=== PATIENT | female | born 1965 | race Caucasian/White ===

== ENCOUNTER 2017-03-25 11:19 | Day surgery (SDC) | payer OTHER ==
[2017-03-24 11:33] VITALS: BMI 21.8
[2017-03-25 12:08] LABS: BASOPHIL 1.5 % (0-2.0); EOSINOPHIL 0.6 % (0-4.5); MCH 33.2 pg (25.7-33.7); MCHC 33.5 g/dl (32.0-36.0); NEUTROPHILS 64.3 % (42.8-82.8); PLATELET COUNT 304 K/MM3 (134-434); RDW 13.6 % (11.6-15.6); WHITE BLOOD COUNT 6.2 K/mm3 (4.0-10.0)
[2017-03-25 12:24] LABS: INR 1.04 (0.82-1.09); PROTHROMBIN TIME (PATIENT) 11.4 SEC (9.98-11.88)
[2017-03-25 12:29] VITALS: TEMP 98.7
[2017-03-25 20:00] VITALS: BP 105/66; PULSE 60
--- NOTE | 2017-03-26 15:23 | PATH ---
Surgical Pathology Report Patient Name: VANDANA WISE [facility]. Rec. #: [id number] /Age/Gender: 1965 (Age: 51) / F Account: [id number] Location: Taken: 03/25/2017 Received: 03/25/2017 Reported: 03/26/2017 Physicians: Robb Chakraborty M.D. Ammir Rabadi, M.D. Specimen(s) Received RIGHT LUNG BIOPSY Clinical History 51-year-old female with right lung mass Final Diagnosis LUNG, RIGHT, NEEDLE CORE BIOPSY: MODERATELY DIFFERENTIATED PULMONARY ADENOCARCINOMA. Comment: Sections reveal one tissue with neoplastic cells growing in a lepidic pattern and infiltrating the stroma. Immunohistochemical stains performed and interpreted at [facility] show the following results: The neoplastic cells stain with CK7 and TTF-1, and do not stain with CK20. The histologic and immunophenotypic findings are consistent with pulmonary adenocarcinoma. This case was discussed with Dr. Willson on March 26, 2017. Electronically Signed Temo Amaya M.D. Gross Description Received in formalin labeled "right lung biopsy," are 3 rivas, cylindrical portions of soft tissue averaging 1.0 cm in length and 0.1 cm in diameter. The specimens are submitted in toto in one cassette. 03/25/201703/25/2017
== END 2017-03-25 19:00 | disposition home or self-care (01) ==
LOC: JRADIR 11:19
PROVIDERS: ATTEND Internal Medicine Pulmonary Disease
PROC: BB24ZZZ Computerized Tomography (CT Scan) of Bilateral Lungs (ICD-10-PCS; principal; 2017-03-25)
PROC: 0BBK3ZX Excision of Right Lung, Percutaneous Approach, Diagnostic (ICD-10-PCS; 2017-03-25)
DX: C34.91 Malignant neoplasm of unspecified part of right bronchus or lung (principal)
CPT/HCPCS: 36415; 71010-TC; 76098-TC; 77012-TC; 85025; 85610; 87899; 88305-TC; 88341-TC; 88342-TC

== ENCOUNTER 2017-04-28 08:31 | Inpatient (IN) | payer OTHER ==
[2017-04-25 13:51] VITALS: BMI 21.6
[2017-04-28] MEDS ORDERED: MIDAZOLAM HCL 2 MG/2 ML SINGLE DOSE VIAL ONE (11:02)
[2017-04-28] MEDS ORDERED: PHENYLEPHRINE HCL 10 MG/1 ML SINGLE DOSE VIAL ONE ×2 (11:11→14:53)
[2017-04-28] MEDS ORDERED: PROPOFOL 20 ML ONE ×2 (11:19→14:02)
[2017-04-28] MEDS ORDERED: NEOSTIGMINE METHYLSULFATE 0.5 MG/ML - 10 ML MDV ONE (11:44)
[2017-04-28] MEDS ORDERED: NALOXONE HCL 0.4 MG/ML VIAL ONE (11:50)
[2017-04-28] MEDS ORDERED: BUPIVACAINE HCL/PF 0.5% (5MG/ML) 10 ML VIAL ONE ×2 (13:35→13:36)
[2017-04-28] MEDS ORDERED: DEXAMETHASONE SOD PHOSPHATE/PF 10 MG/ML SDV ONE (13:35)
[2017-04-28] MEDS ORDERED: ceFAZolin SODIUM 1 GM VIAL IVPB ONE (14:05)
[2017-04-28] MEDS ORDERED: HEPARIN NA (PORCINE) 5,000 UNITS/ML 1ML VIAL SQ ONE (14:10)
[2017-04-28] MEDS ORDERED: ROCURONIUM BROMIDE 50 MG/5 ML VIAL ONE ×2 (14:45→16:47)
[2017-04-28] MEDS ORDERED: ceFAZolin SODIUM 1 GM VIAL ONE (14:46)
[2017-04-28] MEDS ORDERED: LIDOCAINE HCL 1%, 10 MG/ML (20ML VIAL) ONE (14:46)
[2017-04-28] MEDS ORDERED: HYDROmorphone HCL/PF 1 MG/ML VIAL (FOR PYXIS CHARGING ONLY) ONE ×5 (14:48→19:35)
[2017-04-28] MEDS ORDERED: DEXAMETHASONE SOD PHOSPHATE 4 MG/1 ML VIAL ONE (16:38)
[2017-04-28] MEDS ORDERED: ePHEDrine SULFATE 50 MG/1 ML AMPULE ONE (16:49)
--- NOTE | 2017-04-28 18:37 | OP ---
Operative Note - Note: Operative Date: 04/28/17 Pre-Operative Diagnosis: Lung cancer Operation: Bronchoscopy, Right lower lobectomy, mediastinal lymph node dissection Findings: Superior segment malignant tumor. Margin negative. Implants: none Post-Operative Diagnosis: Same as Pre-op Surgeon: Price Mercado Tobacco Primer Machine Operator: Juan Zaidi (cosurgeon) Anesthesiologist/METER TECHNICIAN: Jerald Rodriguez Anesthesia: General Estimated Blood Loss (mls): 250 Operative Report Dictated: Yes
[2017-04-28] MEDS ORDERED: LIDOCAINE HCL 1%, 10 MG/ML (50 mL VIAL) IJ ONE (18:40)
[2017-04-28] MEDS ORDERED: ALPRAZolam 0.25 MG TABLET PO PRN (18:45)
[2017-04-28] MEDS ORDERED: SODIUM CHLORIDE 1,000 ML IV SCH (19:00)
[2017-04-28] MEDS: HYDROmorphone HCL CARPU-JECT 2 MG/1 ML DISP.SYRIN IVPUSH PRN ×3 (19:10→20:15)
[2017-04-28] MEDS ORDERED: oxyCODONE HCL 5 MG TABLET PO PRN (19:11)
[2017-04-28] MEDS ORDERED: ACETAMINOPHEN 1000 MG/100 ML VIAL (NON FORMULARY) IVPB ONE (19:11)
[2017-04-28] MEDS ORDERED: ONDANSETRON 4 MG/2 ML VIAL IVPUSH PRN (19:11)
[2017-04-28] MEDS ORDERED: PROMETHAZINE HCL 25 MG/1 ML VIAL IVPUSH PRN (19:11)
[2017-04-28] MEDS: IPRATROPIUM BR 0.02% 0.5 MG/2.5 ML VIAL.NEB. NEB SCH ×2 (20:00→23:03)
[2017-04-28] MEDS ORDERED: HYDROmorphone HCL CARPU-JECT 2 MG/1 ML DISP.SYRIN ONE (20:14)
[2017-04-28] MEDS ORDERED: ACETAMINOPHEN INJECTION 100 ML IVPB ONE (20:25)
[2017-04-28] MEDS: GABAPENTIN 300 MG CAPSULE (FP) PO SCH (21:38)
[2017-04-28] MEDS: ACETAMINOPHEN 325 MG TABLET (FP) PO SCH (21:39)
[2017-04-28] MEDS: DOCUSATE SODIUM 100 MG CAPSULE (FP) PO SCH (21:39)
[2017-04-28] MEDS: MUPIROCIN 2% TOPICAL OINTMENT FOR DECOLONIZATION NS SCH (21:40)
--- NOTE | 2017-04-28 21:43 | CONSULT ---
Consult Consult Specialty:: Pulm/CCM Reason for Consultation:: s/p Rt lobectomy - History of Present Illness Chief Complaint: Rt chest tube site pain History of Present Illness: 51 marcia active smoker with PMHx degenerative bone disease, anxiety and panic attacks recently discovered rt lung mass now s/p right lower lobe lobectomy and mediastinal lymph node dissection admitted to ICU for post-op care. Briefly Ms Francis states that she is an active smoker and is chronically SOB. Rt lung mass was discovered in August 2016 during imaging of degenerative spine disease. She denied cough, hemoptysis or worsening SOB. Admitted today for elective tumor resection. Admitted to ICU s/p RLL lobectomy and mediastinal lymph node dissection. Rec'd A +O x3 HR 73, BP 97/61 O2 sat 100% on NC O2 2L. CT x1 to LWS with sero sang drainage and occasional air leak. - History Source History Provided By: Patient, Medical Record Limitations to Obtaining History: No Limitations - Past Medical History Psych: Yes: Anxiety, Panic Musculoskeletal: Yes: Osteoarthritis - Alcohol/Substance Use Hx Alcohol Use: Yes (rarely) - Smoking History Smoking history: Current every day smoker Have you smoked in the past 12 months: Yes Aproximately how many cigarettes per day: 1 - Social History Usual Living Arrangement: With Spouse Home Medications - Allergies Allergies/Adverse Reactions: Allergies Allergy/AdvReac Type Severity Reaction Status Date / Time shrimp Allergy Unknown Verified 03/24/17 11:33 No Known Drug Allergies Allergy Verified 03/24/17 11:33 - Home Medications Home Medications: Ambulatory Orders Alprazolam [Xanax] 4 mg PO HS 03/24/17 Aspirin [ASA -] 162 mg PO DAILY 03/24/17 Oxycodone HCl/Acetaminophen [Percocet 10-325 mg Tablet] 1 each PO Q4HWA Alprazolam [Xanax] 2 mg PO TID PRN 04/08/17 Family Disease History - Family Disease History Family Disease History: CA: Mother (Lung) Review of Systems - Review of Systems Constitutional: reports: No Symptoms Eyes: reports: No Symptoms HENT: reports: No Symptoms Neck: reports: No Symptoms Cardiovascular: reports: No Symptoms Respiratory: reports: Cough Gastrointestinal: reports: No Symptoms Genitourinary: reports: No Symptoms Musculoskeletal: reports: No Symptoms Integumentary: reports: No Symptoms Neurological: reports: No Symptoms Endocrine: reports: No Symptoms Physical Exam Vital Signs: Vital Signs Temperature 97.8 F 04/28/17 19:02 Pulse Rate 88 04/28/17 20:15 Respiratory Rate 16 04/28/17 20:15 Blood Pressure 91/46 04/28/17 20:15 O2 Sat by Pulse Oximetry (%) 100 04/28/17 20:15 Constitutional: Yes: No Distress, Calm, Thin Eyes: Yes: WNL HENT: Yes: Atraumatic, Normocephalic Neck: Yes: Trachea Midline Cardiovascular: Yes: Regular Rate and Rhythm Respiratory: Yes: Regular, On Nasal O2, Other (Crackles RLL; Rt CT to LWS with occasional air leak) Gastrointestinal: Yes: Soft, Hypoactive Bowel Sounds Renal/: Yes: Yee Present Musculoskeletal: Yes: WNL Extremities: Yes: WNL Edema: No Peripheral Pulses WNL: Yes Wound/Incision: Yes: Other (Dressing intact with serosang drainage) Neurological: Yes: Alert, Oriented ...Motor Strength: WNL Psychiatric: Yes: Alert, Oriented Labs: CBC,CMP Serum , Qual Negative 04/28/17 08:41 Current Medications Generic Name Dose Route Start Last Admin Trade Name Freq PRN Reason Stop Dose Admin Acetaminophen 650 mg 04/28/17 19:15 04/28/17 21:39 Tylenol - PO 05/01/17 19:14 Not Given Q6H ALTAGRACIA Alprazolam 0.5 mg 04/28/17 18:45 Xanax - PO TID PRN ANXIETY Chlorhexidine Gluconate 1 applic 04/28/17 22:00 04/28/17 21:39 Hibiclens For Decolonization - TP 1 applic HS ALTAGRACIA Administration Docusate Sodium 100 mg 04/28/17 22:00 04/28/17 21:39 Colace - PO 100 mg BID ALTAGRACIA Administration Gabapentin 300 mg 04/28/17 22:00 04/28/17 21:38 Neurontin - PO 300 mg BID ALTAGRACIA Administration Heparin Sodium (Porcine) 5,000 unit 04/29/17 10:00 Heparin - SQ BID ALTAGRACIA Hydromorphone HCl 2 mg 04/28/17 19:11 04/28/17 20:15 Dilaudid Injection - IVPUSH 05/01/17 19:12 2 mg [id number] PRN Administration PAIN Cefazolin Sodium 1 gm/ 50 mls @ 100 mls/hr 04/29/17 22:00 Dextrose IVPB 04/30/17 14:29 Q8H ALTAGRACIA Sodium Chloride 1,000 mls @ 75 mls/hr 04/28/17 19:00 04/28/17 20:10 Normal Saline - IV 300 mls ASDIR ALTAGRACIA Administration Ipratropium [place] 1 amp 04/28/17 19:00 04/28/17 20:00 Atrovent 0.02% Nebulizer - NEB Not Given QIDR ALTAGRACIA Mupirocin 1 applic 04/28/17 22:00 04/28/17 21:40 Bactroban Ointment (For Decolonization) - NS 05/03/17 21:59 1 applic BID ALTAGRACIA Administration Ondansetron HCl 4 mg 04/28/17 19:11 Zofran Injection IVPUSH 04/29/17 01:12 Q6H PRN NAUSEA AND/OR VOMITING Oxycodone HCl 10 mg 04/28/17 22:00 04/28/17 21:38 Oxycontin - PO 05/01/17 19:14 10 mg BID ALTAGRACIA Administration Oxycodone HCl 5 mg 04/28/17 19:11 Roxicodone - PO Q3H PRN PAIN LEVEL 1-5 Oxycodone HCl 10 mg 04/28/17 19:11 Roxicodone - PO Q3H PRN PAIN LEVEL 6-10 Promethazine HCl 12.5 mg 04/28/17 19:11 Phenergan Injection - IVPUSH 04/29/17 01:12 Q6H PRN NAUSEA-FOR RESCUE AFTER 15 MIN Imaging - Results Chest X-ray: Report Reviewed Problem List - Problems (1) Lung cancer Code(s): C34.90 - MALIGNANT NEOPLASM OF UNSP PART OF UNSP BRONCHUS OR LUNG (2) S/P lobectomy of lung Code(s): Z90.2 - ACQUIRED ABSENCE OF LUNG [PART OF] Assessment/Plan 51 marcia active smoker with PMHx degenerative bone disease, anxiety and panic attacks recently discovered rt lung mass now s/p right lower lobe lobectomy and mediastinal lymph node dissection admitted to ICU for post-op care. Plan: -NC O2 support for O2 sat>95% -CT to LWS monitor for air leak and drainage -Cont nebs -IS and pulmonary toilet -Pain management -Clears liquids as tenisha -Cont home psyche meds - SCDs Karin Chaudhari, ACNP
[2017-04-28] MEDS ORDERED: oxyCODONE HCL 10 MG SUSTAINED ACTING TABLET PO SCH (22:00)
[2017-04-28] MEDS ORDERED: CHLORHEXIDINE GLUCONATE 4% CLEANSER FOR DECOLONIZATION TP SCH (22:00)
[2017-04-28] MEDS: oxyCODONE HCL 5 MG TABLET PO PRN (23:30)
[2017-04-29 00:12] LABS: MCH 32.5 pg (25.7-33.7); MCHC 33.8 g/dl (32.0-36.0); MEAN CELL VOLUME 96.2 fl (80-96); MEAN PLT VOLUME 9.2 fl (7.5-11.1); PLATELET COUNT 258 K/MM3 (134-434); RDW 13.8 % (11.6-15.6); WHITE BLOOD COUNT 16.9 K/mm3 (4.0-10.0)
[2017-04-29 00:17] LABS: ARTERIAL BLD GAS O2 SATURATION 99.2 % (90-98.9); ARTERIAL BLOOD GAS BASE EXCESS -0.3 meq/l (-2-2); ARTERIAL BLOOD GAS HCO3 22.7 meq/L (22-26); ARTERIAL BLOOD GAS pH 7.45 (7.35-7.45)
[2017-04-29 00:18] LABS: ART PUNCT SITE ARTERIAL LINE; LPM/O2% 2LPM; PT. ON O2? YES; TYPE OF O2 NASAL O2
[2017-04-29 00:25] LABS: ALBUMIN 3.5 g/dl (3.4-5.0); ALK PHOS 66 U/L (45-117); ANION GAP 12 (8-16); BILIRUBIN,TOTAL 0.7 mg/dL (0.2-1.0); CALCIUM 8.7 mg/dL (8.5-10.1); CO2 22 mmol/L (21-32); CREATININE 0.7 mg/dL (0.55-1.02); GLUCOSE,RANDOM 178 mg/dL (74-106); SGOT/AST 21 U/L (15-37); SGPT/ALT 25 U/L (12-78); TOT PROT 6.2 g/dl (6.4-8.2)
[2017-04-29] MEDS ORDERED: ALPRAZolam 2 MG TABLET PO ONE (01:44)
[2017-04-29] MEDS: ACETAMINOPHEN 325 MG TABLET (FP) PO SCH ×2 (02:02→07:48)
[2017-04-29] MEDS: oxyCODONE HCL 5 MG TABLET PO PRN ×2 (04:19→07:27)
[2017-04-29] MEDS: CEFAZOLIN (PRE-DOCKED) 50 ML IVPB SCH ×2 (04:19→10:59)
[2017-04-29 06:18] LABS: BASOPHIL 0.1 % (0-2.0); MCH 33.3 pg (25.7-33.7); MCHC 34.5 g/dl (32.0-36.0); MEAN CELL VOLUME 96.5 fl (80-96); MEAN PLT VOLUME 9.1 fl (7.5-11.1); NEUTROPHILS 86.2 % (42.8-82.8); PLATELET COUNT 243 K/MM3 (134-434); RDW 13.7 % (11.6-15.6); WHITE BLOOD COUNT 13.8 K/mm3 (4.0-10.0)
[2017-04-29] MEDS: IPRATROPIUM BR 0.02% 0.5 MG/2.5 ML VIAL.NEB. NEB SCH ×3 (06:30→18:00)
[2017-04-29 06:39] LABS: ANION GAP 6 (8-16); CALCIUM 9.1 mg/dL (8.5-10.1); CO2 30 mmol/L (21-32); GLUCOSE,RANDOM 117 mg/dL (74-106)
[2017-04-29 06:40] LABS: CREATININE 0.6 mg/dL (0.55-1.02)
--- NOTE | 2017-04-29 08:13 | PN ---
Physical Exam: SUBJECTIVE: Patient seen and examined. Patient anxious and emotional. OBJECTIVE: Vital Signs Period Temp Pulse Resp BP Sys/Casanova Pulse Ox Last 24 Hr 97.8 F-98.7 F 53-100 14-22 82-124/46-87 96-100 Gen: emotional, irritable and tearful Heart: RRR, S1 S2 audible Lung: decreased breath sounds at the bases Abd: soft, nontender Ext: no edema Chest tube: 300mL serosanguinous drainage, + air leak Intake & Output 04/26/17 04/27/17 04/28/17 04/29/17 23:59 23:59 23:59 23:59 Intake Total 2500 200 Output Total 910 1350 Balance 1590 -1150 Weight 56.4 kg Laboratory Results - last 24 hr 04/28/17 04/28/17 04/28/17 08:41 08:41 23:13 WBC 16.9 H D RBC 3.80 Hgb 12.4 Hct 36.5 MCV 96.2 H MCH 32.5 MCHC 33.8 RDW 13.8 Plt Count 258 MPV 9.2 Neutrophils % Lymphocytes % Monocytes % Eosinophils % Basophils % Puncture Site ABG pH ABG pCO2 at Pt Temp ABG pO2 at Pt Temp ABG HCO3 ABG O2 Sat (Measured) ABG O2 Content ABG Base Excess Gurmeet Test O2 Delivery Device Oxygen Flow Rate PEEP Sodium Potassium Chloride Carbon Dioxide Anion Gap BUN Creatinine Creat Clearance w eGFR Random Glucose Calcium Total Bilirubin AST ALT Alkaline Phosphatase Total Protein Albumin Serum , Qual Negative Blood Type O POSITIVE Antibody Screen Negative Crossmatch IS Only See Detail 04/28/17 04/29/17 04/29/17 23:52 00:00 05:00 WBC 13.8 H RBC 3.54 L Hgb 11.8 Hct 34.2 MCV 96.5 H MCH 33.3 MCHC 34.5 RDW 13.7 Plt Count 243 MPV 9.1 Neutrophils % 86.2 H D Lymphocytes % 7.0 L D Monocytes % 6.7 Eosinophils % 0.0 D Basophils % 0.1 Puncture Site Arterial line ABG pH 7.45 ABG pCO2 at Pt Temp 33.6 L ABG pO2 at Pt Temp 119.0 H ABG HCO3 22.7 ABG O2 Sat (Measured) 99.2 H ABG O2 Content 17.0 ABG Base Excess -0.3 Gurmeet Test Not applicable O2 Delivery Device Nasal o2 Oxygen Flow Rate 2lpm PEEP 0.0 Sodium 137 Potassium 4.0 Chloride 103 Carbon Dioxide 22 D Anion Gap 12 BUN 12 Creatinine 0.7 Creat Clearance w eGFR > 60 Random Glucose 178 H D Calcium 8.7 Total Bilirubin 0.7 D AST 21 D ALT 25 D Alkaline Phosphatase 66 D Total Protein 6.2 L Albumin 3.5 Serum , Qual Blood Type Antibody Screen Crossmatch IS Only 04/29/17 05:00 WBC RBC Hgb Hct MCV MCH MCHC RDW Plt Count MPV Neutrophils % Lymphocytes % Monocytes % Eosinophils % Basophils % Puncture Site ABG pH ABG pCO2 at Pt Temp ABG pO2 at Pt Temp ABG HCO3 ABG O2 Sat (Measured) ABG O2 Content ABG Base Excess Gurmeet Test O2 Delivery Device Oxygen Flow Rate PEEP Sodium 139 Potassium 4.8 Chloride 103 Carbon Dioxide 30 D Anion Gap 6 L BUN 9 D Creatinine 0.6 Creat Clearance w eGFR Random Glucose 117 H D Calcium 9.1 Total Bilirubin AST ALT Alkaline Phosphatase Total Protein Albumin Serum , Qual Blood Type Antibody Screen Crossmatch IS Only Active Medications Generic Name Dose Route Start Last Admin Trade Name Freq PRN Reason Stop Dose Admin Acetaminophen 650 mg 04/28/17 19:15 04/29/17 07:48 Tylenol - PO 05/01/17 19:14 Not Given Q6H ALTAGRACIA Chlorhexidine Gluconate 1 applic 04/28/17 22:00 04/28/17 21:39 Hibiclens For Decolonization - TP 1 applic HS ALTAGRACIA Administration Docusate Sodium 100 mg 04/28/17 22:00 04/28/17 21:39 Colace - PO 100 mg BID ALTAGRACIA Administration Gabapentin 300 mg 04/28/17 22:00 04/28/17 21:38 Neurontin - PO 300 mg BID ALTAGRACIA Administration Heparin Sodium (Porcine) 5,000 unit 04/29/17 10:00 Heparin - SQ BID ALTAGRACIA Hydromorphone HCl 2 mg 04/28/17 19:11 04/28/17 20:15 Dilaudid Injection - IVPUSH 05/01/17 19:12 2 mg [id number] PRN Administration PAIN Cefazolin Sodium 50 mls @ 100 mls/hr 04/29/17 02:34 04/29/17 04:19 Ancef 1gm Ivpb (Pre-Docked) IVPB 04/29/17 14:29 100 mls/hr Q8H ALTAGRACIA Administration Ipratropium [place] 1 amp 04/28/17 19:00 04/29/17 06:30 Atrovent 0.02% Nebulizer - NEB 1 amp QIDR ALTAGRACIA Administration Mupirocin 1 applic 04/28/17 22:00 04/28/17 21:40 Bactroban Ointment (For Decolonization) - NS 05/03/17 21:59 1 applic BID ALTAGRACIA Administration Oxycodone HCl 10 mg 04/28/17 22:00 04/28/17 21:38 Oxycontin - PO 05/01/17 19:14 10 mg BID ALTAGRACIA Administration Oxycodone HCl 5 mg 04/28/17 19:11 Roxicodone - PO Q3H PRN PAIN LEVEL 1-5 Oxycodone HCl 10 mg 04/28/17 19:11 04/29/17 07:27 Roxicodone - PO 10 mg Q3H PRN Administration PAIN LEVEL 6-10 ASSESSMENT/PLAN: 51 marcia active smoker with PMHx degenerative bone disease, anxiety and panic attacks recently discovered rt lung mass now, POD#1 s/p right lower lobe lobectomy and mediastinal lymph node dissection admitted to ICU for post-op care. Plan: LUNGS: - pain control with Oxycodone 15 mg Po q 6 PRN with Tylenol 325 mg, Neurontin 300mg PO TID and Flexeril 10 mg PO BID PER Dr. WILKERSON - incentive spirometry - CT to low wall suction - daily CXR while CT in place DIET - PO as tolerated DISPO - Patient transfered to telemetry - DVT prophylaxis Visit type - Emergency Visit Emergency Visit: No - New Patient This patient is new to me today: Yes Date on this admission: 04/29/17 - Critical Care Critical Care patient: Yes Total Critical Care Time (in minutes): 30 Critical Care Statement: The care of this patient involved high complexity decision making to prevent further life threatening deterioration of the patient 's condition and/or to evaluate & treat vital organ system(s) failure or risk of failure.
--- NOTE | 2017-04-29 08:15 | PN ---
Progress Note (short form) - Note Progress Note: POD #1 Alert. Sitting up in bed. C/o pain to right chest unrelieved by PO pain medication. Patient has a chronic LBP (kdso-sh-eufs and scoliosis) which is also compounding the pain she is experiencing. She is using her incentive spirometer as directed. Hasn't been OOB yet. Denies n/v/f/c. Last Vital Signs Temp Pulse Resp BP Pulse Ox 98 F 53 L 16 91/53 100 04/29/17 06:00 04/29/17 06:00 04/29/17 06:00 04/29/17 06:00 04/28/17 23:09 OUTPUT TRENDS 04/29/17 04/29/17 06:37 07:07 Right Chest Tube 150 [place] 1,200 CBC, BMP 04/29/17 05:00 04/29/17 05:00 CXR /12: tube in good position. No ptx PE Gen: moderate discomfort Chest: dressing c/d/i, pleurovac on suction--> no air leak : layton to gravity (clear) LE: SCDs bilat. Soft, non-tender bilat. Problem List - Problems (1) S/P lobectomy of lung Assessment/Plan: POD #1 Anesthesia to start patient on [employer]IST Pain Management Consult ordered --> Dr. Jan Grossman DC layton OOB and ambulate Cont incentive spirometer 10x/hr while awake f/u CXR Diet as tolerated DCT ppx Cx PT Pleurovac to remain on suction Above discussed with Dr. Mercado and agrees Code(s): Z90.2 - ACQUIRED ABSENCE OF LUNG [PART OF]
[2017-04-29] MEDS ORDERED: ALPRAZolam 2 MG TABLET PO PRN (08:22)
[2017-04-29] MEDS ORDERED: oxyCODONE HCL 10 MG SUSTAINED ACTING TABLET PO SCH (08:28)
[2017-04-29] MEDS ORDERED: oxyCODONE HCL 5 MG TABLET PO PRN ×4 (08:29→21:31)
--- NOTE | 2017-04-29 08:36 | PN ---
Progress Note (short form) - Note Progress Note: S: Pt. sitting in bed, c/o severe pain, however, talking and using her IS without problem. O: Pain: severe A/P: Pod#1 s/p right lobectomy 1. Will increase po pain meds and add xanax bid. No REIMBURSEMENT SPEC for now 2. encouraged insentive spirometer use 3. pain management consult placed
[2017-04-29] MEDS ORDERED: ACETAMINOPHEN 325 MG TABLET (FP) PO SCH (10:00)
[2017-04-29] MEDS ORDERED: HEPARIN NA (PORCINE) 5,000 UNITS/ML 1ML VIAL SQ SCH (10:00)
--- NOTE | 2017-04-29 10:41 | CONSULT ---
Consult Consult Specialty:: Pain Management Reason for Consultation:: Chest wall pain s/p Rt lower Lobectomy - History of Present Illness Chief Complaint: Rt chesst wall pain History of Present Illness: This 51 year old female with history chrinic LBP, Sciatica, DJD spine , scoliosis on chronic use of opioids had Rt lower lung lobectomy due to CA lung. Her pain is 7/10 on medication. - History Source History Provided By: Patient Limitations to Obtaining History: No Limitations - Past Medical History Psych: Yes: Anxiety, Panic Musculoskeletal: Yes: Chronic low back pain, Osteoarthritis Rheumatology: Yes: Fibromyalgia - Past Surgical History Past Surgical History: Yes: - Alcohol/Substance Use Hx Alcohol Use: Yes (rarely) - Smoking History Smoking history: Current every day smoker Have you smoked in the past 12 months: Yes Aproximately how many cigarettes per day: 1 - Social History Usual Living Arrangement: With Spouse Home Medications - Allergies Allergies/Adverse Reactions: Allergies Allergy/AdvReac Type Severity Reaction Status Date / Time shrimp Allergy Unknown Verified 03/24/17 11:33 No Known Drug Allergies Allergy Verified 03/24/17 11:33 - Home Medications Home Medications: Ambulatory Orders Alprazolam [Xanax] 4 mg PO HS 03/24/17 Aspirin [ASA -] 162 mg PO DAILY 03/24/17 Oxycodone HCl/Acetaminophen [Percocet 10-325 mg Tablet] 1 each PO Q4HWA Alprazolam [Xanax] 2 mg PO TID PRN 04/08/17 Family Disease History - Family Disease History Family Disease History: CA: Mother (Lung) Review of Systems - Review of Systems Constitutional: reports: No Symptoms Eyes: reports: No Symptoms HENT: reports: No Symptoms Neck: reports: No Symptoms Cardiovascular: reports: No Symptoms Respiratory: reports: SOB Gastrointestinal: reports: No Symptoms Genitourinary: reports: No Symptoms Musculoskeletal: reports: Back Pain, Joint Swelling, Muscle Pain, Muscle Cramps Neurological: reports: No Symptoms Endocrine: reports: No Symptoms Psychiatric: reports: No Symptoms, Anxiety Pain Intensity: 7 Physical Exam Vital Signs: Vital Signs Temperature 98.4 F 04/29/17 08:31 Pulse Rate 72 04/29/17 08:31 Respiratory Rate 12 04/29/17 08:31 Blood Pressure 94/62 04/29/17 08:31 O2 Sat by Pulse Oximetry (%) 100 04/29/17 09:36 Constitutional: Yes: Calm Eyes: Yes: WNL HENT: Yes: WNL, Other (On O2 via nasal canula) Respiratory: Yes: Other (Rt chest wall drainage tube) Gastrointestinal: Yes: WNL Labs: CBC, BMP 04/29/17 05:00 04/29/17 05:00 Problem List - Problems (1) Post-op pain Assessment/Plan: Discussed in detail and answered all questions 1. continue current care 2. Physical Therapy and respiratory Therapy 3. D/C Oxycontin 4. Oxycodone 15 mg Po q 6 PRN with Tylenol 325 mg 5. Neurontin 300mg PO TID 6. Flexeril 10 mg PO BID . Thanks for your kind referral. Jan Grossman MD Code(s): G89.18 - OTHER ACUTE POSTPROCEDURAL PAIN
[2017-04-29] MEDS ORDERED: CYCLOBENZAPRINE HCL 10 MG TABLET (FP) PO PRN ×2 (10:51→21:31)
[2017-04-29] MEDS ORDERED: ACETAMINOPHEN 325 MG TABLET (FP) PO PRN (10:55)
[2017-04-29] MEDS: MUPIROCIN 2% TOPICAL OINTMENT FOR DECOLONIZATION NS SCH ×2 (10:58→22:51)
[2017-04-29] MEDS: DOCUSATE SODIUM 100 MG CAPSULE (FP) PO SCH ×2 (10:58→22:49)
[2017-04-29] MEDS: GABAPENTIN 300 MG CAPSULE (FP) PO SCH ×2 (10:58→22:51)
[2017-04-29] MEDS ORDERED: PT OWN MED DRAWER 7, Y5N ONE (12:13)
--- NOTE | 2017-04-29 12:14 | PN ---
Teaching Attending Note Name of Resident: Manuel Chand ATTENDING PHYSICIAN STATEMENT I saw and evaluated the patient. I reviewed the resident's note and discussed the case with the resident. I agree with the resident's findings and plan as documented. SUBJECTIVE: Pt seen and examined in the ICU. s/p R VATS/RLL lobectomy/LN dissection. Reports uncontrolled pain and anxiety. No shortness of breath. OBJECTIVE: Last Vital Signs Temp Pulse Resp BP Pulse Ox 98.3 F 70 16 86/57 100 04/29/17 10:00 04/29/17 10:40 04/29/17 10:40 04/29/17 10:40 04/29/17 09:36 Intake & Output 04/26/17 04/27/17 04/28/17 04/29/17 23:59 23:59 23:59 23:59 Intake Total 2500 200 Output Total 910 1350 Balance 1590 -1150 Weight 124 lb 5.451 oz Gen: anxious, tearful Heart: RRR Lung: decreased breath sounds at the bases Abd: soft, nontender Ext: no edema Chest tube: serosanguinous drainage, + air leak CBC, BMP 04/29/17 05:00 04/29/17 05:00 CXR: chest tube in place, no pneumothorax Active Medications Acetaminophen (Tylenol -) 325 mg PO Q4H PRN PRN Reason: FEVER OR PAIN Alprazolam (Xanax -) 2 mg PO Q12H PRN PRN Reason: ANXIETY Chlorhexidine Gluconate (Hibiclens For Decolonization -) 1 applic TP HS [facility] Last Admin: 04/28/17 21:39 Dose: 1 applic Cyclobenzaprine HCl (Flexeril -) 10 mg PO TID PRN PRN Reason: MUSCLE SPASMS Docusate Sodium (Colace -) 100 mg PO BID [facility] Last Admin: 04/29/17 10:58 Dose: 100 mg Gabapentin (Neurontin -) 300 mg PO BID [facility] Last Admin: 04/29/17 10:58 Dose: 300 mg Heparin Sodium (Porcine) (Heparin -) 5,000 unit SQ BID [facility] Last Admin: 04/29/17 10:58 Dose: 5,000 unit Cefazolin Sodium (Ancef 1gm Ivpb (Pre-Docked)) 50 mls @ 100 mls/hr IVPB Q8H [facility] Stop: 04/29/17 14:29 Last Admin: 04/29/17 10:59 Dose: 100 mls/hr Ipratropium [place] (Atrovent 0.02% Nebulizer -) 1 amp NEB QIDR [facility] Last Admin: 04/29/17 06:30 Dose: 1 amp Mupirocin (Bactroban Ointment (For Decolonization) -) 1 applic NS BID [facility] Stop: 05/03/17 21:59 Last Admin: 04/29/17 10:58 Dose: 1 applic Oxycodone HCl (Roxicodone -) 15 mg PO Q6H PRN PRN Reason: PAIN ASSESSMENT AND PLAN: NSCLC (adenocarcinoma) s/p R VATS/RLL lobectomy Anxiety Fibromyalgia Smoker - pain control - incentive spirometry - CT to low wall suction - daily CXR while CT in place - resume home xanax - PO as tolerated - can monitor on telemetry - DVT prophylaxis
--- NOTE | 2017-04-29 14:40 | OPR ---
Patient Name: Lashell Francis MR#: [id number] Procedure Date: 04/28/2017 Preoperative Diagnosis: Lung cancer Postoperative Diagnosis: Same Procedure: Flexible bronchoscopy, right vats, lower lobectomy, lymph node sampling Indication: as above Surgeon(s): Dr. Price Mercado Cosurgeon: Dr. Juan Zaidi Anesthesia: General Endotracheal Wound Classification: Clean Antibiotic Prophylaxis: Cefazolin Findings: Normal bronchoscopy; tumor in right lower lobe, inflamed hilum likely secondary to active smoking. Specimens Sent: right lower lobe, lymph nodes. Complications: none Drains / Tubes / Catheters: 1 chest tubes Hardware / Implants: n/a Blood / Fluid Losses: 250cc Blood / Fluids Administered: per anesthesia Post-Operative Condition: stable, extubated to PACU Indications: This patient is a 51 year-old female smoker with a right lower lobe cancer. She was referred from Dr. Willson and Dr. Ponce for lung resection. She was explained the risks, benefits, and alternatives of a bronchoscopy, VATS, and lobectomy and agreed and understood. Details of Procedure: The patient was taken into the operating room and placed supine on the table. She was monitored with pulse oximetry and blood pressure monitoring, including an arterial line. Sequential compression devices were placed. Subcutaneous heparin was given and a layton catheter was placed. She was given sedation and an endotracheal tube was placed. A bronchoscopy was performed to view her airway. A double-lumen tube was then placed. She was then positioned in the left lateral decubitus position and the tube position was reconfirmed. Her chest was prepared and draped in sterile fashion. We began with a thoracoscopy. We placed four ports and then divided the pulmonary ligament. We then proceeded with individual hilar ligation using a stapling device. We completed the fissure and then removed the specimen through the anterior port and passed it off. We then obtained hemostasis. We then placed a chest tube and inflated the lung being sure that the middle lobe was not torsed. Absorbable sutures were placed in the muscle layers and subcutaneous tissues, and then the skin. Sterile dressings were placed. The patient was then awakened and extubated. She tolerated the procedure well and was taken to the PACU.
--- NOTE | 2017-04-29 14:55 | PN ---
Progress Note (short form) - Note Progress Note: Thoracic Attending: POD#1 s/p RVATS lower lobe. OOB, ambulate, chest PT. -Pain service for pain control. -Continue chest tube to suction for one more day. -Overall doing well.
--- NOTE | 2017-04-29 16:21 | HP ---
Admitting History and Physical - Primary Care Physician PCP: Clau Ponce - Admission Chief Complaint: C/O PAIN, ANXIETY History of Present Illness: 51 marcia active smoker with PMHx degenerative bone disease, anxiety and panic attacks recently discovered rt lung mass now, POD#1 s/p right lower lobe lobectomy and mediastinal lymph node dissection admitted to ICU for post-op care. History Source: Patient, Medical Record - Past Medical History Psych: Yes: Anxiety, Panic Musculoskeletal: Yes: Chronic low back pain, Osteoarthritis Rheumatology: Yes: Fibromyalgia - Past Surgical History Past Surgical History: Yes: - Smoking History Smoking history: Current every day smoker Have you smoked in the past 12 months: Yes Aproximately how many cigarettes per day: 1 - Alcohol/Substance Use Hx Alcohol Use: Yes (rarely) Home Medications - Allergies Allergies/Adverse Reactions: Allergies Allergy/AdvReac Type Severity Reaction Status Date / Time shrimp Allergy Unknown Verified 03/24/17 11:33 No Known Drug Allergies Allergy Verified 03/24/17 11:33 - Home Medications Home Medications: Ambulatory Orders Alprazolam [Xanax] 4 mg PO HS 03/24/17 Aspirin [ASA -] 162 mg PO DAILY 03/24/17 Oxycodone HCl/Acetaminophen [Percocet 10-325 mg Tablet] 1 each PO Q4HWA Alprazolam [Xanax] 2 mg PO TID PRN 04/08/17 Family Disease History - Family Disease History Family Disease History: CA: Mother (Lung) Review of Systems - Review of Systems Constitutional: reports: Loss of Appetite Eyes: reports: No Symptoms HENT: reports: No Symptoms Neck: reports: No Symptoms Cardiovascular: reports: Chest Pain Respiratory: reports: Cough, SOB Gastrointestinal: reports: No Symptoms Genitourinary: reports: No Symptoms Musculoskeletal: reports: Back Pain, Joint Pain Integumentary: reports: No Symptoms Neurological: reports: No Symptoms Endocrine: reports: No Symptoms Hematology/Lymphatic: reports: No Symptoms Psychiatric: reports: Anxiety, Panic Physical Examination Vital Signs: Vital Signs Temperature 98.6 F 04/29/17 15:36 Pulse Rate 79 04/29/17 15:36 Respiratory Rate 19 04/29/17 15:36 Blood Pressure 88/52 04/29/17 15:36 O2 Sat by Pulse Oximetry (%) 100 04/29/17 09:36 Constitutional: Yes: Mild Distress Eyes: Yes: WNL HENT: Yes: WNL Neck: Yes: WNL Cardiovascular: Yes: WNL Respiratory: Yes: Cough, On Nasal O2, Rhonchi Gastrointestinal: Yes: WNL Renal/: Yes: WNL Musculoskeletal: Yes: Back Pain Extremities: Yes: WNL Edema: No Peripheral Pulses WNL: Yes Integumentary: Yes: WNL Wound/Incision: Yes: Draining Neurological: Yes: Pre-Existing Deficit ...Motor Strength: LLE, RLE Psychiatric: Yes: Other Labs: CBC, BMP 04/29/17 05:00 04/29/17 05:00 Problem List - Problems (1) Anxiety disorder Code(s): F41.9 - ANXIETY DISORDER, UNSPECIFIED Qualifiers: Anxiety disorder type: generalized anxiety disorder Qualified Code(s ): F41.1 - Generalized anxiety disorder (2) Lung cancer Code(s): C34.90 - MALIGNANT NEOPLASM OF UNSP PART OF UNSP BRONCHUS OR LUNG Qualifiers: Laterality: right (3) Post-op pain Code(s): G89.18 - OTHER ACUTE POSTPROCEDURAL PAIN (4) S/P lobectomy of lung Code(s): Z90.2 - ACQUIRED ABSENCE OF LUNG [PART OF] Assessment/Plan 02 SUPPORT PAIN CONTROL PULMONARY F/U DRAINING CHEST TUBE CHECK LABS AWAIT LOBECTOMY RESULTS
[2017-04-29] MEDS ORDERED: CEFAZOLIN 1 GM in DEXTROSE 5%-WATER - 50 ML IVPB SCH (22:00)
[2017-04-29] MEDS ORDERED: HYDROmorphone HCL CARPU-JECT 2 MG/1 ML DISP.SYRIN IVPUSH ONE (22:34)
[2017-04-29] MEDS: HEPARIN NA (PORCINE) 5,000 UNITS/ML 1ML VIAL SQ SCH (22:50)
[2017-04-29] MEDS: CHLORHEXIDINE GLUCONATE 4% CLEANSER FOR DECOLONIZATION TP SCH (22:52)
[2017-04-30] MEDS: IPRATROPIUM BR 0.02% 0.5 MG/2.5 ML VIAL.NEB. NEB SCH ×4 (00:01→19:00)
[2017-04-30] MEDS: ALPRAZolam 2 MG TABLET PO PRN ×2 (01:20→21:41)
[2017-04-30] MEDS ORDERED: morphine CARPU-JECT 2 MG/1 ML DISP.SYRIN IVPUSH ONE (01:23)
--- NOTE | 2017-04-30 01:34 | HOSP ---
Physical Examination Vital Signs: Vital Signs Temperature 98.3 F 04/29/17 21:00 Pulse Rate 82 04/29/17 21:00 Respiratory Rate 18 04/29/17 21:00 Blood Pressure 100/58 04/29/17 21:00 O2 Sat by Pulse Oximetry (%) 100 04/29/17 09:36 Labs: CBC, BMP 04/29/17 05:00 04/29/17 05:00 Hospitalist Encounter Assessment: RN notified that patient is complaining of severe chest pain. Went to evaluate the patient. Patient mentioned that she is having severe chest pain, located on the right side, under her right breast, stabbing in nature, 10/10 in intensity, non radiating, aggravated on movement and while taking deep inspiration. Patient said " I am feeling dizzy, I will pass out soon, I am having a heart attack, please help me". Also complaints of sob, palpitation but denies abdominal pain, nausea or vomiting. Vitals: BP: 115/64 mmHg, P- 130-150 bpm, RR-25, Temp- 98 F General: Thinly built female, looked anxious, awake, alert, oriented x 3, complaining of chest pain. HEENT: No pallor or icterus, dry mucous membranes Chest: Right sided chest tube in place, decreased breath sounds R>L, no wheeze CVS: Tachycardic, S1, A2rtfpy, no murmur Abdomen: Soft, non tender Ext: No peripheral edema. A/P Patient is a 51 year old female, active smoker, with PMHx degenerative bone disease, anxiety and panic attacks recently discovered rt lung mass now s/p right lower lobe lobectomy and mediastinal lymph node dissection admitted to ICU for post-op care. # Atypical chest pain likely due to anxiety and chest tube insertion Would like to r/o ACS Stat Cardiac profile, EKG, CXR ordered IV Morphine 1mg stat Xanax (her usual dose) given as patient looks very anxious. After she received xanax, her HR decreased to 110bpm. Will monitor closely. AM: Troponin x 1 negative. Patient is feeling much better, pain has resolved. Case discussed with Dr. Allen. Visit type - Emergency Visit Emergency Visit: Yes ED Registration Date: 04/28/17 Care time: The patient presented to the Emergency Department on the above date and was hospitalized for further evaluation of their emergent condition. - New Patient This patient is new to me today: Yes Date on this admission: 04/29/17 - Critical Care Critical Care patient: No
[2017-04-30 02:01] LABS: CPK 431 IU/L (26-192); TROPONIN I < 0.02 ng/ml (0.00-0.05)
[2017-04-30 06:19] LABS: MCH 33.6 pg (25.7-33.7); MCHC 34.3 g/dl (32.0-36.0); MEAN CELL VOLUME 97.9 fl (80-96); MEAN PLT VOLUME 8.9 fl (7.5-11.1); PLATELET COUNT 242 K/MM3 (134-434); RDW 13.8 % (11.6-15.6); WHITE BLOOD COUNT 18.2 K/mm3 (4.0-10.0)
[2017-04-30 06:41] LABS: ALBUMIN 3.2 g/dl (3.4-5.0); ANION GAP 7 (8-16); CALCIUM 8.5 mg/dL (8.5-10.1); CO2 30 mmol/L (21-32); GLUCOSE,RANDOM 138 mg/dL (74-106)
[2017-04-30 06:45] LABS: ALK PHOS 60 U/L (45-117); BILIRUBIN,TOTAL 0.5 mg/dL (0.2-1.0); CREATININE 1.1 mg/dL (0.55-1.02); SGOT/AST 21 U/L (15-37); SGPT/ALT 26 U/L (12-78); TOT PROT 5.8 g/dl (6.4-8.2)
--- NOTE | 2017-04-30 08:12 | PN ---
Progress Note (short form) - Note Progress Note: POD #2 Alert. Sitting in bed. Still c/o chronic LBP along with incisional tenderness. Patient was seen yesterday by Dr. Grossman (Pain management) and appreciated. Hasn' t gotten out of bed yet. Yee removed yesterday and is voiding spontaneously. Denies n/v/f/c, CP or palpitations. Last Vital Signs Temp Pulse Resp BP Pulse Ox 98.7 F 88 13 94/70 100 04/30/17 06:00 04/30/17 06:00 04/30/17 06:00 04/30/17 06:00 04/29/17 21:00 CBC, BMP 04/30/17 05:00 04/30/17 05:00 CXR 04/30: decr right pleural effusion, resolving right basilar atelectasis. ? right apical ptx. Left basilar atelectatic changes. Gen: mild to moderate discomfort Chest: right chest incisions c/d/i. CxT: 172mL/serosang/24hrs. No air leak LE: SCDs b/l Problem List - Problems (1) S/P lobectomy of lung Assessment/Plan: POD #2 Pain management follow-up with Dr. Grossman CxT placed to [facility] at 8AM Aggressive pulmonary toileting Incentive spirometer Out of bed and ambulate DVT PPX Regular diet Dressing changed on rounds Above plan discussed with Dr. Mercado and agrees Code(s): Z90.2 - ACQUIRED ABSENCE OF LUNG [PART OF]
[2017-04-30] MEDS: ACETAMINOPHEN 325 MG TABLET (FP) PO PRN ×4 (09:01→21:43)
--- NOTE | 2017-04-30 09:54 | PN ---
Progress Note, Physician Chief Complaint: patient and her concerned about pain medications they feel the situation has been under treated patient appears comfortable, has long history of back pain and on percocet at home and xanax - Current Medication List Current Medications: Active Medications Acetaminophen (Tylenol -) 325 mg PO Q4H PRN PRN Reason: FEVER OR PAIN Last Admin: 04/30/17 09:01 Dose: 325 mg Alprazolam (Xanax -) 2 mg PO Q12H PRN PRN Reason: ANXIETY Last Admin: 04/30/17 01:20 Dose: 2 mg Aspirin (Asa -) 162 mg PO DAILY [facility] Chlorhexidine Gluconate (Hibiclens For Decolonization -) 1 applic TP HS [facility] Last Admin: 04/29/17 22:52 Dose: 1 applic Cyclobenzaprine HCl (Flexeril -) 10 mg PO Q8H PRN PRN Reason: MUSCLE SPASMS Docusate Sodium (Colace -) 100 mg PO BID [facility] Last Admin: 04/29/17 22:49 Dose: Not Given Gabapentin (Neurontin -) 300 mg PO BID [facility] Last Admin: 04/29/17 22:51 Dose: Not Given Heparin Sodium (Porcine) (Heparin -) 5,000 unit SQ BID [facility] Last Admin: 04/29/17 22:50 Dose: Not Given Ipratropium [place] (Atrovent 0.02% Nebulizer -) 1 amp NEB QIDR [facility] Last Admin: 04/30/17 06:44 Dose: Not Given Mupirocin (Bactroban Ointment (For Decolonization) -) 1 applic NS BID [facility] Stop: 05/03/17 21:59 Last Admin: 04/29/17 22:51 Dose: Not Given Oxycodone HCl (Roxicodone -) 15 mg PO Q6H PRN PRN Reason: PAIN Last Admin: 04/30/17 08:56 Dose: 15 mg - Objective Vital Signs: Vital Signs Temperature 98.7 F 04/30/17 06:00 Pulse Rate 88 04/30/17 06:00 Respiratory Rate 13 04/30/17 06:00 Blood Pressure 94/70 04/30/17 06:00 O2 Sat by Pulse Oximetry (%) 100 04/29/17 21:00 Constitutional: Yes: Mild Distress Eyes: Yes: WNL HENT: Yes: WNL Neck: Yes: WNL Cardiovascular: Yes: WNL Respiratory: Yes: WNL Gastrointestinal: Yes: WNL Genitourinary: Yes: WNL Musculoskeletal: Yes: Back Pain Extremities: Yes: WNL Edema: No Peripheral Pulses WNL: Yes Integumentary: Yes: WNL Wound/Incision: Yes: Dressing Dry and Intact, Draining Neurological: Yes: Other ...Motor Strength: LLE, RLE Psychiatric: Yes: Agitated Labs: CBC, BMP 04/30/17 05:00 04/30/17 05:00 Problem List - Problems (1) Anxiety disorder Code(s): F41.9 - ANXIETY DISORDER, UNSPECIFIED Qualifiers: Anxiety disorder type: generalized anxiety disorder Qualified Code(s ): F41.1 - Generalized anxiety disorder (2) Lung cancer Code(s): C34.90 - MALIGNANT NEOPLASM OF UNSP PART OF UNSP BRONCHUS OR LUNG Qualifiers: Laterality: right (3) Post-op pain Code(s): G89.18 - OTHER ACUTE POSTPROCEDURAL PAIN (4) S/P lobectomy of lung Code(s): Z90.2 - ACQUIRED ABSENCE OF LUNG [PART OF] Assessment/Plan CHEST TUBE TO DRAIN POD #2 WEDGE LUNG RESECTION CTS FOLLOW UP/PULMONARY PERCOCET ADDED Q4HRS I EXPLAINED THE RISKS OF HAVING TO MUCH OPIODS WITH RESPIRATORY DEPRESSION ON 02 THERAPY PAIN MEDICINE CONSULT NEURO SURGERY CONSULT PATIENT WANTS FLEXERIL STOPPED (MAKES HER GROGGY) PSYCHIATRY EVAL ? OUTPATIENT
[2017-04-30] MEDS ORDERED: ASPIRIN 81 MG CHEWABLE TABLETS PO SCH (10:00)
[2017-04-30] MEDS: MUPIROCIN 2% TOPICAL OINTMENT FOR DECOLONIZATION NS SCH ×2 (10:00→21:41)
[2017-04-30] MEDS: GABAPENTIN 300 MG CAPSULE (FP) PO SCH ×2 (10:00→21:41)
[2017-04-30] MEDS ORDERED: hydrOXYzine HCL 25 MG TABLET (FP) PO PRN (10:16)
[2017-04-30] MEDS ORDERED: oxyCODONE HCL 5 MG TABLET PO PRN (11:12)
--- NOTE | 2017-04-30 12:45 | CONSULT ---
Consult - text type - Consultation Consultation Note: Asked to see this 51 year old female who is recovering from wedge resection of pulmonary lesion and has a long history of back pain and has been given a diagnosis of scoliosis. I had a brief chat with patient and spouse and understandably, all focus is on recovery from her recent surgery and planning for potential future therapies. Both expressed an interest in evaluating her chronic back pain after she recovers from her current condition. I have given them contact information and would be happy to see them when her medical condition has recovered.
[2017-04-30] MEDS: oxyCODONE HCL 5 MG TABLET PO PRN ×3 (13:24→21:42)
[2017-04-30] MEDS: HEPARIN NA (PORCINE) 5,000 UNITS/ML 1ML VIAL SQ SCH ×2 (13:27→21:40)
[2017-04-30] MEDS: DOCUSATE SODIUM 100 MG CAPSULE (FP) PO SCH ×2 (13:28→21:41)
[2017-04-30] MEDS ORDERED: PT OWN MED DRAWER 7, Y5N ONE (21:36)
[2017-04-30] MEDS: CHLORHEXIDINE GLUCONATE 4% CLEANSER FOR DECOLONIZATION TP SCH (21:41)
[2017-05-01] MEDS: IPRATROPIUM BR 0.02% 0.5 MG/2.5 ML VIAL.NEB. NEB SCH ×5 (00:10→23:10)
[2017-05-01] MEDS: oxyCODONE HCL 5 MG TABLET PO PRN ×5 (02:02→19:58)
[2017-05-01] MEDS: ACETAMINOPHEN 325 MG TABLET (FP) PO PRN ×5 (02:03→19:58)
[2017-05-01 06:27] LABS: BASOPHIL 0.7 % (0-2.0); EOSINOPHIL 1.9 % (0-4.5); MCH 33.5 pg (25.7-33.7); MCHC 34.7 g/dl (32.0-36.0); MEAN CELL VOLUME 96.5 fl (80-96); MEAN PLT VOLUME 8.6 fl (7.5-11.1); NEUTROPHILS 56.9 % (42.8-82.8); PLATELET COUNT 189 K/MM3 (134-434); RDW 13.7 % (11.6-15.6); WHITE BLOOD COUNT 10.1 K/mm3 (4.0-10.0)
[2017-05-01 06:42] LABS: ANION GAP 3 (8-16); CALCIUM 8.4 mg/dL (8.5-10.1); CO2 33 mmol/L (21-32); CREATININE 0.5 mg/dL (0.55-1.02); GLUCOSE,RANDOM 115 mg/dL (74-106)
[2017-05-01 08:15] LABS: MCH 32.6 pg (25.7-33.7); MCHC 33.5 g/dl (32.0-36.0); MEAN CELL VOLUME 97.2 fl (80-96); MEAN PLT VOLUME 8.4 fl (7.5-11.1); PLATELET COUNT 204 K/MM3 (134-434); RDW 13.6 % (11.6-15.6); WHITE BLOOD COUNT 11.3 K/mm3 (4.0-10.0)
--- NOTE | 2017-05-01 09:18 | PATH ---
Surgical Pathology Report Patient Name: VANDANA WISE [facility]. Rec. #: [id number] /Age/Gender: 1965 (Age: 51) / F Account: [id number] Location: ICU ANVILSMITH Taken: 04/28/2017 Received: 04/28/2017 Reported: 05/01/2017 Physicians: Price Mercado M.D. Specimen(s) Received A: RIGHT LUNG LOWER LOBE B: RIGHT MIDDLE LOBE WEDGE OF THE LUNG C: THORACIC LYMPH NODE LEVEL #7 RIGHT Clinical History Lung cancer Intraoperative Consult Diagnosis Right lung lower lobe: Bronchial margin is negative for carcinoma (1 FS). Nadine Ferraro M.D., 04/28/17 Final Diagnosis A. LUNG, RIGHT LOWER LOBE, LOBECTOMY: PULMONARY ADENOCARCINOMA, MODERATELY DIFFERENTIATED, WITH ACINAR (~60%), LEPIDIC (~38%) AND FOCAL MICROPAPILLARY (<2%) GROWTH PATTERNS. TUMOR FOCALITY SIZE: UNIFOCAL, 2.3 CM (MICROSCOPIC MEASURMENT). VISCERAL PLEURA INVASION: PRESENT (PL2), WITH ADHESIONS. SURGICAL RESECTION MARGINS: BRONCHIAL AND VASCULAR MARGINS ARE NEGATIVE FOR CARCINOMA (CARCINOMA IS ~4.0 CM FROM THE BRONCHIAL MARGIN). LYMPHOVASCULAR INVASION: NOT DEFINITIVELY IDENTIFIED. PERINEURAL INVASION: NOT IDENTIFIED. SURROUNDING LUNG TISSUE: FOCAL MILD EMPHYSEMATOUS CHANGES. 13 HILAR ANTHRACOTIC LYMPH NODES NEGATIVE FOR CARCINOMA (0/13). PATHOLOGIC STAGING: PRIMARY TUMOR: pT2a LYMPH NODES: pN0 Comment: Elastic stain (EVG) supports visceral pleural invasion. Refer to [id number] for the prior core biopsy results. PD-L1 IHC is pending; results will be reported in addendum. Material is available for the molecular biomarkers studies. B. LUNG, RIGHT MIDDLE LOBE, WEDGE RESECTION: BENIGN LUNG TISSUE WITH FOCAL HEMORRHAGE AND FOCAL MILD EMPHYSEMATOUS CHANGES. NO CARCINOMA IDENTIFIED. C. THORACIC LYMPH NODE, LEVEL 7 RIGHT, BIOPSY: BENIGN, PREDOMINANTLY FATTY AND FOCALLY LYMPHOID TISSUE; NEGATIVE FOR CARCINOMA. Comments Lung Carcinoma: Surgical Pathology Cancer Case Summary (Checklist) Based on AJCC/UICC TNM, 7th edition Specimen Laterality _x_ Right Specimen Integrity _x_ Intact Tumor Site _x_ Lower lobe Tumor Size Greatest dimension: 2.3 cm Tumor Focality _x_ Unifocal Histologic Type: adenocarcinoma Histologic Grade _x_ G2: Moderately differentiated Visceral Pleura Invasion _x_ Present Margins Bronchial Margin _x_ Uninvolved by invasive carcinoma Vascular Margin _x_ Uninvolved by invasive carcinoma Parenchymal Margin _x_ Not applicable Parietal Pleural Margin _x_ Not applicable Chest Wall Margin _x_ Not applicable If all margins uninvolved by invasive carcinoma: Distance of invasive carcinoma from closest margin: ~4.0 cm (40 mm) Specify margin: bronchial Treatment Effect _x_ Not applicable Lymph-Vascular Invasion _x_ Not definitively identified Pathologic Staging (pTNM) Primary Tumor: pT2a Regional Lymph Nodes: pN0 Number examined: 14 Number involved: 0 Distant Metastasis(pM): not applicable Electronically Signed Krystian Ferraro M.D. Addendum Reported: 05/02/2017 Addendum Diagnosis PD-L1 (Keytruda) IHC, Clone 22C3 Pharm Dx performed and interpreted at [place], [place] ([id number] ) shows the following: Result: PD-L1 (Keytruda) TPS: 0% (No Expression) Reference Range: TPS=Tumor Proportion Score (% of at least 100 viable tumor cells showing complete or partial membrane staining at =1+) TPS< 1% =No Expression TPS 1-49% =Low Expression. Eligible for second line treatment with Keytruda. TPS =50% =High Expression. Eligible for first or second line treatment with Keytruda. The PD-L1, 22C3 pharmDx is FDA approved for use in the detection of PD-L1 in formalin-fixed paraffin-embedded non-small cell lung carcinoma using the [employer] platform. The assay is indicated as an aid in identifying NSCLC patients for treatment with Keytruda (pembrolizumab). Krystian Ferraro M.D. Gross Description A. Received fresh labeled "right lower lobe of lung" is a 225 g, 17.5 x 12.5 x 5.5 cm lobe of lung with focal staple lines at the hilum. The pleura is red-brown with a focal defect. Sectioning reveals a 2.1 x 1.6 x 1.4 cm rivas-martin, firm mass focally abutting the pleura in the area of the defect. The mass is 4 cm from the bronchial margin. The remaining lung parenchyma is red-brown and spongy. There are multiple black, irregular, possible lymph nodes identified at the hilum. The bronchial margin is removed and submitted for frozen section. Hatchery Manager sections are submitted in 12 cassettes as follows: 1-frozen section residue of bronchial margin; 2-vascular margin; 3-6-mass with pleura; 8-7-yktualzliz associate sales representative lung parenchyma; 1-02-xrkqsyst whole possible lymph nodes. B. Received in formalin labeled "right middle lobe wedge of lung" is a 3.0 x 2.0 x 1.9 cm lung wedge with a stapled margin of resection. The pleura is red-brown and intact. Sectioning reveals red-brown, spongy parenchyma. No definitive mass is identified. The specimen is entirely submitted in 6 cassettes as follows: 1-shave of staple line; 2-7-vepxcymx and sequentially submitted specimen. C. Received in formalin labeled "thoracic lymph node level #7 right" is a 0.4 x 0.3 x 0.2 cm black, irregular lymph node. The specimen is submitted in toto in one cassette. 04/29/2017 [facility]04/29/2017
[2017-05-01] MEDS: FERROUS SO4 325 MG TABLET (FP) PO SCH ×3 (10:30→23:25)
[2017-05-01] MEDS: MUPIROCIN 2% TOPICAL OINTMENT FOR DECOLONIZATION NS SCH ×2 (10:51→23:26)
[2017-05-01] MEDS: DOCUSATE SODIUM 100 MG CAPSULE (FP) PO SCH ×2 (10:51→23:25)
[2017-05-01] MEDS: GABAPENTIN 300 MG CAPSULE (FP) PO SCH ×2 (10:51→23:26)
--- NOTE | 2017-05-01 11:15 | PN ---
Progress Note (short form) - Note Progress Note: Thoracic Surgery: POD#3. Overall doing well. Pain controlled by Pain service. Respiratory status good. Hgb/Hct decrease with high chest tube output, slightly sanguineous. I measured 200 in last 24 hours. Total this am was 1850 since surgery. DC'd asa and sqh (so thin may be getting some im which would anticoagulate). Will place tube back to suction. CXR tomorrow. When drainage thinner will place back to water seal. No evidence of air-leak. Overall, happy with her progress.
--- NOTE | 2017-05-01 11:20 | PN ---
Progress Note, Physician - Current Medication List Current Medications: Active Medications Acetaminophen (Tylenol -) 325 mg PO Q4H PRN PRN Reason: FEVER OR PAIN Last Admin: 05/01/17 10:30 Dose: 325 mg Acetaminophen (Tylenol -) 650 mg PO Q4H PRN PRN Reason: PAIN LEVEL 6-10 Alprazolam (Xanax -) 2 mg PO Q12H PRN PRN Reason: ANXIETY Last Admin: 04/30/17 21:41 Dose: 2 mg Chlorhexidine Gluconate (Hibiclens For Decolonization -) 1 applic TP HS [facility] Last Admin: 04/30/17 21:41 Dose: 1 applic Docusate Sodium (Colace -) 100 mg PO BID [facility] Last Admin: 05/01/17 10:51 Dose: Not Given Ferrous Sulfate (Feosol -) 325 mg PO BID [facility] Last Admin: 05/01/17 10:30 Dose: 325 mg Gabapentin (Neurontin -) 300 mg PO BID [facility] Last Admin: 05/01/17 10:51 Dose: Not Given Hydroxyzine HCl (Atarax -) 25 mg PO BID PRN PRN Reason: ANXIETY Ipratropium [place] (Atrovent 0.02% Nebulizer -) 1 amp NEB QIDR [facility] Last Admin: 05/01/17 06:23 Dose: 1 amp Mupirocin (Bactroban Ointment (For Decolonization) -) 1 applic NS BID [facility] Stop: 05/03/17 21:59 Last Admin: 05/01/17 10:51 Dose: Not Given Oxycodone HCl (Roxicodone -) 10 mg PO Q4H PRN PRN Reason: PAIN LEVEL 6-10 Last Admin: 05/01/17 10:29 Dose: 10 mg - Objective Vital Signs: Vital Signs Temperature 99 F 05/01/17 05:00 Pulse Rate 88 05/01/17 05:00 Respiratory Rate 18 05/01/17 05:00 Blood Pressure 91/52 05/01/17 05:00 O2 Sat by Pulse Oximetry (%) 100 04/30/17 21:00 Labs: CBC, BMP 05/01/17 07:55 05/01/17 05:00 Problem List - Problems (1) Anxiety disorder Code(s): F41.9 - ANXIETY DISORDER, UNSPECIFIED Qualifiers: Anxiety disorder type: generalized anxiety disorder Qualified Code(s ): F41.1 - Generalized anxiety disorder (2) Lung cancer Code(s): C34.90 - MALIGNANT NEOPLASM OF UNSP PART OF UNSP BRONCHUS OR LUNG Qualifiers: Laterality: right (3) Post-op pain Code(s): G89.18 - OTHER ACUTE POSTPROCEDURAL PAIN (4) S/P lobectomy of lung Code(s): Z90.2 - ACQUIRED ABSENCE OF LUNG [PART OF]
--- NOTE | 2017-05-01 13:16 | EKG ---
Test Reason : Blood Pressure : / mmHG Vent. Rate : 123 BPM Atrial Rate : 123 BPM P-R Int : 126 ms QRS Dur : 066 ms QT Int : 312 ms P-R-T Axes : 071 030 076 degrees QTc Int : 446 ms POOR DATA QUALITY, INTERPRETATION MAY BE ADVERSELY AFFECTED SINUS TACHYCARDIA NONSPECIFIC ST AND T WAVE ABNORMALITY ABNORMAL ECG NO PREVIOUS ECGS AVAILABLE Confirmed by ROYCE CURTIS MD ([id number]) on 05/01/2017 1:16:50 PM Referred By: Confirmed By:ROYCE CURTIS MD
--- NOTE | 2017-05-01 15:14 | PN ---
Progress Note (short form) - Note Progress Note: Patient seen and examined in the ICU. POD #3 Right VATS/RLL lobectomy/LN dissection. Some musculoskeletal / pleuritic type discomfort on the right. Able to ambulate today. Noted CT output sanguinous/serosanguinous = 200cc. H&H noted. CXR : Stable small Right Apical PTX Intake & Output 04/28/17 04/29/17 04/30/17 05/01/17 23:59 23:59 23:59 23:59 Intake Total 2500 850 320 Output Total 910 1372 850 Balance 1590 -522 -530 Weight 124 lb 5.451 oz Last Vital Signs Temp Pulse Resp BP Pulse Ox 98.5 F 87 22 114/68 100 05/01/17 14:25 05/01/17 14:25 05/01/17 14:25 05/01/17 14:25 04/30/17 21:00 Active Medications Acetaminophen (Tylenol -) 325 mg PO Q4H PRN PRN Reason: FEVER OR PAIN Last Admin: 05/01/17 14:27 Dose: 325 mg Acetaminophen (Tylenol -) 650 mg PO Q4H PRN PRN Reason: PAIN LEVEL 6-10 Alprazolam (Xanax -) 2 mg PO Q12H PRN PRN Reason: ANXIETY Last Admin: 04/30/17 21:41 Dose: 2 mg Chlorhexidine Gluconate (Hibiclens For Decolonization -) 1 applic TP HS [facility] Last Admin: 04/30/17 21:41 Dose: 1 applic Docusate Sodium (Colace -) 100 mg PO BID [facility] Last Admin: 05/01/17 10:51 Dose: Not Given Ferrous Sulfate (Feosol -) 325 mg PO BID [facility] Last Admin: 05/01/17 10:30 Dose: 325 mg Gabapentin (Neurontin -) 300 mg PO BID [facility] Last Admin: 05/01/17 10:51 Dose: Not Given Hydroxyzine HCl (Atarax -) 25 mg PO BID PRN PRN Reason: ANXIETY Ipratropium [place] (Atrovent 0.02% Nebulizer -) 1 amp NEB QIDR [facility] Last Admin: 05/01/17 11:26 Dose: Not Given Mupirocin (Bactroban Ointment (For Decolonization) -) 1 applic NS BID [facility] Stop: 05/03/17 21:59 Last Admin: 05/01/17 10:51 Dose: Not Given Oxycodone HCl (Roxicodone -) 10 mg PO Q4H PRN PRN Reason: PAIN LEVEL 6-10 Last Admin: 05/01/17 14:28 Dose: 10 mg Gen: anxious, tearful Heart: RRR Lung: decreased breath sounds at the bases Abd: soft, nontender Ext: no edema Chest tube: serosanguinous drainage, (-) air leak Laboratory Results - last 24 hr 04/28/17 05/01/17 05/01/17 08:41 05:00 05:00 WBC 10.1 H D RBC 1.99 L D Hgb 6.6 L* D Hct 19.2 L D MCV 96.5 H MCH 33.5 MCHC 34.7 RDW 13.7 Plt Count 189 D MPV 8.6 Neutrophils % 56.9 D Lymphocytes % 34.3 D Monocytes % 6.2 Eosinophils % 1.9 D Basophils % 0.7 D Sodium 135 L Potassium 3.9 Chloride 99 Carbon Dioxide 33 H Anion Gap 3 L BUN 11 Creatinine 0.5 L D Random Glucose 115 H Calcium 8.4 L Blood Type O POSITIVE Antibody Screen Negative Crossmatch IS Only See Detail 05/01/17 07:55 WBC 11.3 H RBC 2.16 L Hgb 7.0 L Hct 21.0 L MCV 97.2 H MCH 32.6 MCHC 33.5 RDW 13.6 Plt Count 204 MPV 8.4 Neutrophils % Lymphocytes % Monocytes % Eosinophils % Basophils % Sodium Potassium Chloride Carbon Dioxide Anion Gap BUN Creatinine Random Glucose Calcium Blood Type Antibody Screen Crossmatch IS Only ASSESSMENT AND PLAN: NSCLC (adenocarcinoma) POD #3 Right VATS/RLL lobectomy/LN dissection Anxiety Fibromyalgia Smoker - Hold transfusion today - Fe supplementation - Pain control - Incentive spirometry - CT to low wall suction - daily CXR while CT in place - Xanax PRN - PO as tolerated - Ambulate - Noted ASA / SQ Heparin being held -> SCDs Dr Willson
--- NOTE | 2017-05-01 15:56 | PN ---
Progress Note, Physician Chief Complaint: AWAKE ALERT FAMILY BEDSIDE PATIENT UPSET ABOUT HER PAIN CONTROL UPSET ABOUT FEELING IGNORED? I STRESSED TO HER WE ARE ALL WORKING TOGETHER TO HELP HER GET BETTER - Current Medication List Current Medications: Active Medications Acetaminophen (Tylenol -) 325 mg PO Q4H PRN PRN Reason: FEVER OR PAIN Last Admin: 05/01/17 14:27 Dose: 325 mg Acetaminophen (Tylenol -) 650 mg PO Q4H PRN PRN Reason: PAIN LEVEL 6-10 Alprazolam (Xanax -) 2 mg PO Q12H PRN PRN Reason: ANXIETY Last Admin: 04/30/17 21:41 Dose: 2 mg Chlorhexidine Gluconate (Hibiclens For Decolonization -) 1 applic TP HS [facility] Last Admin: 04/30/17 21:41 Dose: 1 applic Docusate Sodium (Colace -) 100 mg PO BID [facility] Last Admin: 05/01/17 10:51 Dose: Not Given Ferrous Sulfate (Feosol -) 325 mg PO BID [facility] Last Admin: 05/01/17 10:30 Dose: 325 mg Gabapentin (Neurontin -) 300 mg PO BID [facility] Last Admin: 05/01/17 10:51 Dose: Not Given Hydroxyzine HCl (Atarax -) 25 mg PO BID PRN PRN Reason: ANXIETY Ipratropium [place] (Atrovent 0.02% Nebulizer -) 1 amp NEB QIDR [facility] Last Admin: 05/01/17 11:26 Dose: Not Given Mupirocin (Bactroban Ointment (For Decolonization) -) 1 applic NS BID [facility] Stop: 05/03/17 21:59 Last Admin: 05/01/17 10:51 Dose: Not Given Oxycodone HCl (Roxicodone -) 10 mg PO Q4H PRN PRN Reason: PAIN LEVEL 6-10 Last Admin: 05/01/17 14:28 Dose: 10 mg - Objective Vital Signs: Vital Signs Temperature 98.5 F 05/01/17 14:25 Pulse Rate 87 05/01/17 14:25 Respiratory Rate 22 05/01/17 14:25 Blood Pressure 114/68 05/01/17 14:25 O2 Sat by Pulse Oximetry (%) 100 04/30/17 21:00 Constitutional: Yes: Mild Distress Eyes: Yes: WNL HENT: Yes: WNL Neck: Yes: WNL Cardiovascular: Yes: WNL Respiratory: Yes: WNL Gastrointestinal: Yes: WNL Genitourinary: Yes: WNL Musculoskeletal: Yes: Back Pain Extremities: Yes: WNL Edema: No Peripheral Pulses WNL: Yes Integumentary: Yes: WNL Wound/Incision: Yes: Draining Neurological: Yes: Other ...Motor Strength: LLE, RLE Psychiatric: Yes: Other Labs: CBC, BMP 05/01/17 07:55 05/01/17 05:00 Problem List - Problems (1) Anxiety disorder Code(s): F41.9 - ANXIETY DISORDER, UNSPECIFIED Qualifiers: Anxiety disorder type: generalized anxiety disorder Qualified Code(s ): F41.1 - Generalized anxiety disorder (2) Lung cancer Code(s): C34.90 - MALIGNANT NEOPLASM OF UNSP PART OF UNSP BRONCHUS OR LUNG Qualifiers: Laterality: right (3) Post-op pain Code(s): G89.18 - OTHER ACUTE POSTPROCEDURAL PAIN (4) S/P lobectomy of lung Code(s): Z90.2 - ACQUIRED ABSENCE OF LUNG [PART OF] Assessment/Plan DRESSING CHANGE TO CHEST TUBE CXR CTS FOLLOW UP LABS REVIEWED ANEMIA SECONDARY TO BLOOD LOSS LIKELY IRON TABLET STARTED RECHECK IN AM PAIN CONTROL PT EVAL OOB TO CHAIR
[2017-05-01] MEDS: CHLORHEXIDINE GLUCONATE 4% CLEANSER FOR DECOLONIZATION TP SCH (23:26)
[2017-05-02] MEDS: oxyCODONE HCL 5 MG TABLET PO PRN ×5 (04:24→23:10)
[2017-05-02] MEDS: ACETAMINOPHEN 325 MG TABLET (FP) PO PRN ×6 (04:28→23:11)
[2017-05-02] MEDS: IPRATROPIUM BR 0.02% 0.5 MG/2.5 ML VIAL.NEB. NEB SCH ×4 (06:10→23:55)
[2017-05-02 06:27] LABS: MCH 33.4 pg (25.7-33.7); MCHC 34.6 g/dl (32.0-36.0); MEAN CELL VOLUME 96.7 fl (80-96); MEAN PLT VOLUME 8.8 fl (7.5-11.1); PLATELET COUNT 199 K/MM3 (134-434); RDW 13.4 % (11.6-15.6); WHITE BLOOD COUNT 8.5 K/mm3 (4.0-10.0)
[2017-05-02 06:45] LABS: INR 0.92 (0.82-1.09); PROTHROMBIN TIME (PATIENT) 10.1 SEC (9.98-11.88)
[2017-05-02 06:48] LABS: ACTIVATED PTT 27.5 SECONDS (26.9-34.4)
[2017-05-02 09:32] LABS: MCH 33.7 pg (25.7-33.7); MCHC 34.9 g/dl (32.0-36.0); MEAN CELL VOLUME 96.4 fl (80-96); MEAN PLT VOLUME 8.2 fl (7.5-11.1); PLATELET COUNT 255 K/MM3 (134-434); RDW 13.4 % (11.6-15.6); WHITE BLOOD COUNT 8.7 K/mm3 (4.0-10.0)
[2017-05-02] MEDS: DOCUSATE SODIUM 100 MG CAPSULE (FP) PO SCH ×2 (11:52→22:03)
[2017-05-02] MEDS: FERROUS SO4 325 MG TABLET (FP) PO SCH ×3 (11:52→22:03)
[2017-05-02] MEDS: MUPIROCIN 2% TOPICAL OINTMENT FOR DECOLONIZATION NS SCH ×2 (11:52→22:02)
[2017-05-02] MEDS: GABAPENTIN 300 MG CAPSULE (FP) PO SCH ×2 (11:53→22:03)
--- NOTE | 2017-05-02 12:14 | PN ---
Progress Note (short form) - Note Progress Note: Patient seen and examined. POD #4 Right VATS/RLL lobectomy/LN dissection. Less musculoskeletal / pleuritic type discomfort. Reports multiple issues with different providers overnight. Noted CT output sanguinous/serosanguinous = 100cc. H&H noted -> Stable. CXR : Small Right Apical PTX / decreasing effusion Intake & Output 04/29/17 04/30/17 05/01/17 05/02/17 23:59 23:59 23:59 23:59 Intake Total 850 320 300 300 Output Total 0718 303 6891 0 Balance -522 -530 -900 300 Weight 124 lb 5.451 oz Last Vital Signs Temp Pulse Resp BP Pulse Ox 98.1 F 79 14 96/64 100 05/02/17 06:00 05/02/17 06:00 05/02/17 06:00 05/02/17 06:00 04/30/17 21:00 Active Medications Acetaminophen (Tylenol -) 325 mg PO Q4H PRN PRN Reason: FEVER OR PAIN Last Admin: 05/02/17 10:35 Dose: 325 mg Alprazolam (Xanax -) 2 mg PO Q12H PRN PRN Reason: ANXIETY Last Admin: 04/30/17 21:41 Dose: 2 mg Chlorhexidine Gluconate (Hibiclens For Decolonization -) 1 applic TP HS [facility] Last Admin: 05/01/17 23:26 Dose: Not Given Docusate Sodium (Colace -) 100 mg PO BID [facility] Last Admin: 05/02/17 11:52 Dose: Not Given Ferrous Sulfate (Feosol -) 325 mg PO BID [facility] Last Admin: 05/02/17 11:52 Dose: Not Given Gabapentin (Neurontin -) 300 mg PO BID [facility] Last Admin: 05/02/17 11:53 Dose: Not Given Hydroxyzine HCl (Atarax -) 25 mg PO BID PRN PRN Reason: ANXIETY Ipratropium [place] (Atrovent 0.02% Nebulizer -) 1 amp NEB QIDR [facility] Last Admin: 05/02/17 11:08 Dose: Not Given Mupirocin (Bactroban Ointment (For Decolonization) -) 1 applic NS BID [facility] Stop: 05/03/17 21:59 Last Admin: 09/15/17 11:52 Dose: Not Given Oxycodone HCl (Roxicodone -) 10 mg PO Q4H PRN PRN Reason: PAIN LEVEL 6-10 Last Admin: 05/02/17 10:31 Dose: 10 mg Gen: anxious, Heart: RRR Lung: decreased breath sounds at the bases Abd: soft, nontender Ext: no edema Chest tube: serosanguinous drainage, (-) air leak Laboratory Results - last 24 hr 05/02/17 05/02/17 05/02/17 05:15 05:15 09:15 WBC 8.5 8.7 RBC 1.81 L 2.10 L Hgb 6.0 L* D 7.1 L D Hct 17.5 L D 20.2 L D MCV 96.7 H 96.4 H MCH 33.4 33.7 MCHC 34.6 34.9 RDW 13.4 13.4 Plt Count 199 255 D MPV 8.8 8.2 PT with INR 10.10 INR 0.92 PTT (Actin FS) 27.5 ASSESSMENT AND PLAN: NSCLC (adenocarcinoma) POD #3 Right VATS/RLL lobectomy/LN dissection Anxiety Fibromyalgia Smoker - Hold transfusion today - Fe supplementation - Pain control - Incentive spirometry - CT to low wall suction - daily CXR while CT in place - Xanax PRN - PO as tolerated - Ambulate - Continue to hold ASA / SQ Heparin -> SCDs - I gave the patient, , and son a full update of her condition and expected treatment plan. All questions were answered. Even after full explanation, the patient still reports that "No one is telling me about my condition." Dr Willson
--- NOTE | 2017-05-02 14:06 | PN ---
Progress Note, Physician Chief Complaint: I SPOKE TO HER PMD BILLY [place], PATIENT HAS A LONG HISTORY OF ANXIETY AND NON-COMPLIANCE TO HER MEDICAL REGIMEN. LONG TIME TOBACCO USER WITH PAIN MEDICATION OPIOD ADDICTION. PATIENT LSO ON XANAX FOR ANXIETY OUTPATIENT. I HAVE SPOKEN TO HER, THE , AND SON BEDSIDE AND THEIR SEEMS TO BE SOME TYPE OF DISTRESS AMONGST THEM. I EXPLAINED TO ALL OF THEM THE CURRENT CONDITION SHE IS IN AND HER PLAN HOWEVER, THEY DO NOT SEEM TO UNDERSTAND THE SEVERITY OF THE ENTIRE DISEASE. I THEREFOR ONCE AGAIN SPENT 30 MINUTES DISCUSSING THE PROCEDURE THE MEDICAL PLAN AND FOLLOW UP. THEY THEN ANSWERED THEY ARE IN AGREEMENT WITH THE PLAN. - Current Medication List Current Medications: Active Medications Acetaminophen (Tylenol -) 325 mg PO Q4H PRN PRN Reason: FEVER OR PAIN Last Admin: 05/02/17 10:35 Dose: 325 mg Alprazolam (Xanax -) 2 mg PO Q12H PRN PRN Reason: ANXIETY Last Admin: 04/30/17 21:41 Dose: 2 mg Chlorhexidine Gluconate (Hibiclens For Decolonization -) 1 applic TP HS [facility] Last Admin: 05/01/17 23:26 Dose: Not Given Docusate Sodium (Colace -) 100 mg PO BID [facility] Last Admin: 05/02/17 11:52 Dose: Not Given Ferrous Sulfate (Feosol -) 325 mg PO BID [facility] Last Admin: 05/02/17 13:54 Dose: 325 mg Gabapentin (Neurontin -) 300 mg PO BID [facility] Last Admin: 05/02/17 11:53 Dose: Not Given Hydroxyzine HCl (Atarax -) 25 mg PO BID PRN PRN Reason: ANXIETY Ipratropium [place] (Atrovent 0.02% Nebulizer -) 1 amp NEB QIDR [facility] Last Admin: 05/02/17 11:08 Dose: Not Given Mupirocin (Bactroban Ointment (For Decolonization) -) 1 applic NS BID [facility] Stop: 05/03/17 21:59 Last Admin: 05/02/17 11:52 Dose: Not Given Oxycodone HCl (Roxicodone -) 10 mg PO Q4H PRN PRN Reason: PAIN LEVEL 6-10 Last Admin: 05/02/17 10:31 Dose: 10 mg - Objective Vital Signs: Vital Signs Temperature 98.1 F 05/02/17 06:00 Pulse Rate 79 05/02/17 06:00 Respiratory Rate 14 05/02/17 06:00 Blood Pressure 96/64 05/02/17 06:00 O2 Sat by Pulse Oximetry (%) 100 04/30/17 21:00 Constitutional: Yes: Mild Distress Eyes: Yes: WNL HENT: Yes: WNL Neck: Yes: WNL Cardiovascular: Yes: WNL Respiratory: Yes: On Nasal O2, Other (CHEST TUBE TO DRAIN) Gastrointestinal: Yes: WNL Genitourinary: Yes: WNL Musculoskeletal: Yes: Back Pain, Muscle Weakness Extremities: Yes: WNL Edema: No Peripheral Pulses WNL: Yes Integumentary: Yes: Tattoos Wound/Incision: Yes: Dressing Dry and Intact, Draining Neurological: Yes: WNL ...Motor Strength: WNL Psychiatric: Yes: Agitated, Other (ANXIETY) Labs: CBC, BMP 05/02/17 09:15 05/01/17 05:00 INR, PTT INR 0.92 (0.82-1.09) 05/02/17 05:15 Problem List - Problems (1) Anxiety disorder Code(s): F41.9 - ANXIETY DISORDER, UNSPECIFIED Qualifiers: Anxiety disorder type: generalized anxiety disorder Qualified Code(s ): F41.1 - Generalized anxiety disorder (2) Lung cancer Code(s): C34.90 - MALIGNANT NEOPLASM OF UNSP PART OF UNSP BRONCHUS OR LUNG Qualifiers: Laterality: right (3) Post-op pain Code(s): G89.18 - OTHER ACUTE POSTPROCEDURAL PAIN (4) S/P lobectomy of lung Code(s): Z90.2 - ACQUIRED ABSENCE OF LUNG [PART OF] Assessment/Plan CHEST TUBE TO DRAIN PER CTS 02 SUPPORT LABS REVIEWED FERROUS SULFATE TABS FOR ANEMIA MONITOR CBC DAILY. SMOKING CESSATION PAIN CONTROL SHOULD HAVE PSYCHIATRY EVAL PAIN MEDICINE DR WILKERSON ON THE CASE ALREADY
[2017-05-02] MEDS ORDERED: PT OWN MED DRAWER 7, Y5N ONE (14:27)
--- NOTE | 2017-05-02 17:01 | PN ---
Progress Note (short form) - Note Progress Note: Thoracic Surgery: POD#4. Overall doing well. Events are Hct drop, bled Friday night, spontaneously stopped. No hemothorax on imaging. SQH stopped. ASA stopped. Breathing well. No air leak on tube. Anxiety is major problem. Will repeat CXR since drainage from tube is down. Check hct in AM. When tube drainage stops, or is thin, will water seal and then pull tube. Earliest would be Friday. Path showed negative nodes show Stage I lung cancer s/p lobectomy.
[2017-05-02] MEDS: CHLORHEXIDINE GLUCONATE 4% CLEANSER FOR DECOLONIZATION TP SCH (22:02)
[2017-05-02] MEDS: ALPRAZolam 2 MG TABLET PO PRN (22:53)
[2017-05-03] MEDS: ACETAMINOPHEN 325 MG TABLET (FP) PO PRN ×5 (03:30→21:11)
[2017-05-03] MEDS: oxyCODONE HCL 5 MG TABLET PO PRN ×5 (03:30→21:11)
[2017-05-03] MEDS ORDERED: PT OWN MED DRAWER 7, Y5N ONE (05:40)
[2017-05-03 06:11] LABS: MCH 33.5 pg (25.7-33.7); MCHC 34.7 g/dl (32.0-36.0); MEAN CELL VOLUME 96.4 fl (80-96); MEAN PLT VOLUME 8.4 fl (7.5-11.1); PLATELET COUNT 220 K/MM3 (134-434); RDW 13.6 % (11.6-15.6); WHITE BLOOD COUNT 7.4 K/mm3 (4.0-10.0)
[2017-05-03] MEDS: IPRATROPIUM BR 0.02% 0.5 MG/2.5 ML VIAL.NEB. NEB SCH ×4 (06:20→23:30)
--- NOTE | 2017-05-03 08:16 | PN ---
Progress Note, Physician Chief Complaint: AWAKE ANXIOUS NEEDING PRBC TRANSFUSION - Current Medication List Current Medications: Active Medications Acetaminophen (Tylenol -) 325 mg PO Q4H PRN PRN Reason: FEVER OR PAIN Last Admin: 05/03/17 07:36 Dose: 325 mg Alprazolam (Xanax -) 2 mg PO Q12H PRN PRN Reason: ANXIETY Last Admin: 05/02/17 22:53 Dose: 2 mg Chlorhexidine Gluconate (Hibiclens For Decolonization -) 1 applic TP HS [facility] Last Admin: 05/02/17 22:02 Dose: Not Given Docusate Sodium (Colace -) 100 mg PO BID [facility] Last Admin: 05/02/17 22:03 Dose: 100 mg Ferrous Sulfate (Feosol -) 325 mg PO BID [facility] Last Admin: 05/02/17 22:03 Dose: 325 mg Gabapentin (Neurontin -) 300 mg PO BID [facility] Last Admin: 05/02/17 22:03 Dose: 300 mg Hydroxyzine HCl (Atarax -) 25 mg PO BID PRN PRN Reason: ANXIETY Ipratropium [place] (Atrovent 0.02% Nebulizer -) 1 amp NEB QIDR [facility] Last Admin: 05/03/17 06:20 Dose: 1 amp Mupirocin (Bactroban Ointment (For Decolonization) -) 1 applic NS BID [facility] Stop: 05/03/17 21:59 Last Admin: 05/02/17 22:02 Dose: Not Given Oxycodone HCl (Roxicodone -) 10 mg PO Q4H PRN PRN Reason: PAIN LEVEL 6-10 Last Admin: 05/03/17 07:35 Dose: 10 mg - Objective Vital Signs: Vital Signs Temperature 98.6 F 05/03/17 06:00 Pulse Rate 77 05/03/17 06:00 Respiratory Rate 18 05/03/17 06:00 Blood Pressure 97/49 05/03/17 06:00 O2 Sat by Pulse Oximetry (%) 98 05/02/17 21:00 Constitutional: Yes: Moderate Distress Eyes: Yes: WNL HENT: Yes: WNL Neck: Yes: WNL Cardiovascular: Yes: Other (CHEST TUBE STILL DRAINING) Respiratory: Yes: WNL Gastrointestinal: Yes: WNL Genitourinary: Yes: WNL Musculoskeletal: Yes: WNL Extremities: Yes: WNL Edema: No Peripheral Pulses WNL: Yes Integumentary: Yes: Other Wound/Incision: Yes: Draining, Other Neurological: Yes: Other ...Motor Strength: LLE, RLE Psychiatric: Yes: Agitated, Other Labs: CBC, BMP 05/03/17 05:00 05/01/17 05:00 INR, PTT INR 0.92 (0.82-1.09) 05/02/17 05:15 Problem List - Problems (1) Anxiety disorder Code(s): F41.9 - ANXIETY DISORDER, UNSPECIFIED Qualifiers: Anxiety disorder type: generalized anxiety disorder Qualified Code(s ): F41.1 - Generalized anxiety disorder (2) Lung cancer Code(s): C34.90 - MALIGNANT NEOPLASM OF UNSP PART OF UNSP BRONCHUS OR LUNG Qualifiers: Laterality: right (3) Post-op pain Code(s): G89.18 - OTHER ACUTE POSTPROCEDURAL PAIN (4) S/P lobectomy of lung Code(s): Z90.2 - ACQUIRED ABSENCE OF LUNG [PART OF] Assessment/Plan CXR REVIEWED NO CHANGES FROM YESTERDAY TRANSFUSE 2 UNITS PRBC ANXIETY MAIN ISSUE AT THIS POINT STOOL OCCULT SAMPLE REFUSED BY PATIENT BEDSIDE HE WILL TRY TO TALK TO HER AND CONVINCE HER. PAON CONTROL DVT PROPHYLAXIS OOB TO CHAIR
--- NOTE | 2017-05-03 09:03 | PN ---
Progress Note (short form) - Note Progress Note: Patient seen and examined. POD #5 Right VATS/RLL lobectomy/LN dissection. Angry and irritated about her course, although medically has been been improving. Less CT drainage. Documented 100cc output. Hemodynamics stable. Patient keeps accusing us of not telling her whats going on although every provider has spent an excessive amount of time reviewing her condition. LN : (-) for CA CXR : Right effusion and small apical PTX Intake & Output 04/30/17 05/01/17 05/02/17 05/03/17 23:59 23:59 23:59 23:59 Intake Total 320 300 800 50 Output Total 850 1200 0 100 Balance -530 -900 800 -50 Weight 124 lb Last Vital Signs Temp Pulse Resp BP Pulse Ox 98.6 F 77 18 97/49 98 05/03/17 06:00 05/03/17 06:00 05/03/17 06:00 05/03/17 06:00 05/02/17 21:00 Active Medications Acetaminophen (Tylenol -) 325 mg PO Q4H PRN PRN Reason: FEVER OR PAIN Last Admin: 05/03/17 07:36 Dose: 325 mg Alprazolam (Xanax -) 2 mg PO Q12H PRN PRN Reason: ANXIETY Last Admin: 05/02/17 22:53 Dose: 2 mg Chlorhexidine Gluconate (Hibiclens For Decolonization -) 1 applic TP HS [facility] Last Admin: 05/02/17 22:02 Dose: Not Given Docusate Sodium (Colace -) 100 mg PO BID [facility] Last Admin: 05/02/17 22:03 Dose: 100 mg Ferrous Sulfate (Feosol -) 325 mg PO BID [facility] Last Admin: 05/02/17 22:03 Dose: 325 mg Gabapentin (Neurontin -) 300 mg PO BID [facility] Last Admin: 05/02/17 22:03 Dose: 300 mg Hydroxyzine HCl (Atarax -) 25 mg PO BID PRN PRN Reason: ANXIETY Ipratropium [place] (Atrovent 0.02% Nebulizer -) 1 amp NEB QIDR [facility] Last Admin: 05/03/17 06:20 Dose: 1 amp Mupirocin (Bactroban Ointment (For Decolonization) -) 1 applic NS BID [facility] Stop: 05/03/17 21:59 Last Admin: 05/02/17 22:02 Dose: Not Given Oxycodone HCl (Roxicodone -) 10 mg PO Q4H PRN PRN Reason: PAIN LEVEL 6-10 Last Admin: 05/03/17 07:35 Dose: 10 mg Gen: anxious, irritated Heart: RRR Lung: decreased breath sounds at the bases Abd: soft, nontender Ext: no edema Chest tube: serosanguinous drainage, (-) air leak Laboratory Results - last 24 hr 05/02/17 05/03/17 09:15 05:00 WBC 8.7 7.4 RBC 2.10 L 1.66 L D Hgb 7.1 L D 5.6 L* D Hct 20.2 L D 16.0 L D MCV 96.4 H 96.4 H MCH 33.7 33.5 MCHC 34.9 34.7 RDW 13.4 13.6 Plt Count 255 D 220 MPV 8.2 8.4 ASSESSMENT AND PLAN: NSCLC (adenocarcinoma) POD #3 Right VATS/RLL lobectomy/LN dissection Anxiety Fibromyalgia Smoker - Blood transfusion ordered as Hgb < 7 - Fe supplementation - Pain control - Incentive spirometry - CT to low wall suction - daily CXR while CT in place - Xanax PRN - PO as tolerated - Ambulate - Continue to hold ASA / SQ Heparin -> SCDs - I gave the patient and a full update of her condition and expected treatment plan. All questions were answered. Even after full explanation, the patient still reports that "No one is telling me about my condition." Dr Willson
[2017-05-03] MEDS: DOCUSATE SODIUM 100 MG CAPSULE (FP) PO SCH ×2 (10:12→21:12)
[2017-05-03] MEDS: GABAPENTIN 300 MG CAPSULE (FP) PO SCH ×2 (10:12→22:03)
[2017-05-03] MEDS: ALPRAZolam 2 MG TABLET PO PRN ×2 (10:13→22:13)
[2017-05-03] MEDS: FERROUS SO4 325 MG TABLET (FP) PO SCH ×2 (10:13→21:10)
[2017-05-03] MEDS: MUPIROCIN 2% TOPICAL OINTMENT FOR DECOLONIZATION NS SCH (10:14)
--- NOTE | 2017-05-03 11:51 | PN ---
Progress Note (short form) - Note Progress Note: Thoracic Surgery POD#5 No drainage and stable cxr. Needs transfusion for perioperative blood loss. No active bleeding although had some high drainage on Friday. Water seal tube today. Possible dc of chest tube tomorrow am.
--- NOTE | 2017-05-03 19:23 | OP ---
DATE OF OPERATION: 04/28/2017 PREOPERATIVE DIAGNOSIS: Lung cancer. POSTOPERATIVE DIAGNOSIS: Lung cancer. PROCEDURE: Bronchoscopy, right video-assisted thoracoscopic surgery, right lower lobe lobectomy, and mediastinal lymph node dissection. INDICATION: Lung cancer. SURGEON: Price Mercado MD CO-SURGEON: Juan Lr MD ANESTHESIA: General endotracheal. FINDINGS: Right lower lobe cancer, mediastinal lymph node. Negative for malignancy. INDICATION: A 51-year-old with a biopsy-verified non-small cell cancer of right lower lobe who was admitted to the hospital. Prior to admission, surgical procedure risks, benefits, and alternative treatments were presented to the patient. It was presented to patient with Dr. Mercado. Patient consented to surgery. PROCEDURE IN DETAIL: The patient was taken to the operating room, placed in a supine position. An intravenous intra-arterial line was done by anesthesiologist. Intravenous sedation was given, and it was intubated with a single-lumen tube. Bronchoscopy was performed. No intrabronchial lesions. After single-lumen tube was exchanged to a left-sided double-lumen tube, right side lung isolation was performed. Hereafter, sequential compression devices were placed. Heparin was given. Antibiotic was given. The patient was placed in left lateral decubitus flexed position with right side up, prepped and draped in a sterile fashion. Four-hole VATS technique was applied to this patient. Dr. Mercado and I identified inferior pulmonary vein, respected. Identified middle lobe vein and respected that. Inferior pulmonary vein was isolated and transected using a stapler device. Hereafter, right lower lobe bronchus was identified, isolated. After isolation of the right lower lobe bronchus, fissure was opened. Pulmonary artery was identified, and basilar segments of PA and superior segments PA were identified and transected using Endostapler. Bronchus was taken after making sure right middle lobe and right upper lobe were inflating. Bronchus was transected using Endostapler device. Hereafter, mediastinal lymph node dissection was performed, and frozen did not show any malignancy. Hemostasis was performed. Irrigation was performed. No leak from bronchus stem observed. A 28-Wolof chest tube was placed intrapleural apical posterior and lung inflated. Incision sites were closed using 0 Vicryl for fascia, 2-0 Vicryl subcutaneous tissue, and 3-0 Monocryl at the level of the skin. The patient tolerated the procedure well. Dr. Mercado and I performed the procedure as dictated above, and we remained available thereafter. JUAN LR M.D. [id number]
[2017-05-03] MEDS: CHLORHEXIDINE GLUCONATE 4% CLEANSER FOR DECOLONIZATION TP SCH (21:13)
[2017-05-04] MEDS: ACETAMINOPHEN 325 MG TABLET (FP) PO PRN ×4 (01:30→18:53)
[2017-05-04] MEDS: oxyCODONE HCL 5 MG TABLET PO PRN ×4 (01:30→18:52)
[2017-05-04 05:23] VITALS: PULSE 75
[2017-05-04 05:58] LABS: MCH 32.3 pg (25.7-33.7); MCHC 35.3 g/dl (32.0-36.0); MEAN CELL VOLUME 91.5 fl (80-96); MEAN PLT VOLUME 8.1 fl (7.5-11.1); PLATELET COUNT 281 K/MM3 (134-434); RDW 15.6 % (11.6-15.6); WHITE BLOOD COUNT 8.6 K/mm3 (4.0-10.0)
[2017-05-04 06:11] VITALS: BP 122/69; TEMP 99.5
[2017-05-04] MEDS: IPRATROPIUM BR 0.02% 0.5 MG/2.5 ML VIAL.NEB. NEB SCH ×3 (06:58→17:18)
[2017-05-04] MEDS: FERROUS SO4 325 MG TABLET (FP) PO SCH (09:21)
[2017-05-04] MEDS: DOCUSATE SODIUM 100 MG CAPSULE (FP) PO SCH ×2 (09:21→18:54)
--- NOTE | 2017-05-04 09:28 | PN ---
Progress Note (short form) - Note Progress Note: Patient seen and examined. POD #6 Right VATS/RLL lobectomy/LN dissection. More calm today. Appropriate response to pRBCs. 100cc from CT CT to water seal : CXR last night stable / overall improved Intake & Output 05/01/17 05/02/17 05/03/17 05/04/17 23:59 23:59 23:59 23:59 Intake Total 684 492 6444 120 Output Total 1200 0 150 100 Balance -900 800 940 20 Weight 124 lb Last Vital Signs Temp Pulse Resp BP Pulse Ox 99.5 F 75 14 122/69 96 05/04/17 06:00 05/04/17 06:00 05/04/17 06:00 05/04/17 06:00 05/03/17 22:00 Active Medications Acetaminophen (Tylenol -) 325 mg PO Q4H PRN PRN Reason: FEVER OR PAIN Last Admin: 05/04/17 09:23 Dose: 325 mg Alprazolam (Xanax -) 2 mg PO Q12H PRN PRN Reason: ANXIETY Last Admin: 05/03/17 22:13 Dose: 2 mg Chlorhexidine Gluconate (Hibiclens For Decolonization -) 1 applic TP HS [facility] Last Admin: 05/03/17 21:13 Dose: Not Given Docusate Sodium (Colace -) 100 mg PO BID [facility] Last Admin: 05/04/17 09:21 Dose: 100 mg Ferrous Sulfate (Feosol -) 325 mg PO BID [facility] Last Admin: 05/04/17 09:21 Dose: 325 mg Gabapentin (Neurontin -) 300 mg PO BID [facility] Last Admin: 05/03/17 22:03 Dose: Not Given Hydroxyzine HCl (Atarax -) 25 mg PO BID PRN PRN Reason: ANXIETY Ipratropium [place] (Atrovent 0.02% Nebulizer -) 1 amp NEB QIDR [facility] Last Admin: 05/04/17 06:58 Dose: 1 amp Oxycodone HCl (Roxicodone -) 10 mg PO Q4H PRN PRN Reason: PAIN LEVEL 6-10 Last Admin: 05/04/17 09:22 Dose: 10 mg Gen: Lass anxious, NAD Heart: RRR Lung: decreased breath sounds at the bases Abd: soft, nontender Ext: no edema Chest tube: serosanguinous drainage, (-) air leak Laboratory Results - last 24 hr 05/03/17 05/04/17 09:25 05:30 WBC 8.6 RBC 3.17 L D Hgb 10.2 L D Hct 29.0 L D MCV 91.5 MCH 32.3 MCHC 35.3 RDW 15.6 D Plt Count 281 D MPV 8.1 Blood Type O POSITIVE Antibody Screen Negative Crossmatch See Detail ASSESSMENT AND PLAN: NSCLC (adenocarcinoma) POD #3 Right VATS/RLL lobectomy/LN dissection Anxiety Fibromyalgia Smoker - Pain control - Incentive spirometry - CT to water seal - daily CXR while CT in place - Xanax PRN - PO as tolerated - Ambulate - Continue to hold ASA / SQ Heparin -> SCDs - I gave the patient and a full update of her condition and expected treatment plan. All questions were answered. - Will D/W CTS next intervention Dr Willson
--- NOTE | 2017-05-04 10:29 | PN ---
Progress Note (short form) - Note Progress Note: Thoracic: POD#6 Good response to transfusion. Drainage ~200 and serosanguineous. Tube removed. Get CXR. If ok, dc planning. Pain meds per pain service. Will need f/u within 2 weeks. Aware of pathology. Today she is happy. She has been combative with entire medical and nursing team. We have spent significant time discussing all aspects of care with her including need for transfusion.
--- NOTE | 2017-05-04 10:40 | CONSULT ---
Consult Consult Specialty:: Hematology/Oncology Reason for Consultation:: New diagnosis of lung cancer - History of Present Illness History of Present Illness: is a 51 y/o female, assisted active smoker with DJD, Hx of anxiety and panic attacks. She was discovered to have a right lung mass during imaging for DJD in Aug 2016. She was recently admitted for VATS - 04/28 during which time she had right lower lobe lobectomy and mediastinal LN dissection. Patient is now s/p surgery and there is ongoing discharge planning now. On speaking with her today, she is very upset and feels her doctors have not been coming to see her even though there is extensive documentation of visits with her.Her at bedside would like for us to communicate all essential medical information to him. - History Source History Provided By: Patient Limitations to Obtaining History: Uncooperative - Past Medical History Psych: Yes: Anxiety, Panic Musculoskeletal: Yes: Chronic low back pain, Osteoarthritis Rheumatology: Yes: Fibromyalgia - Past Surgical History Past Surgical History: Yes: - Alcohol/Substance Use Hx Alcohol Use: Yes (rarely) - Smoking History Smoking history: Current every day smoker Have you smoked in the past 12 months: Yes Aproximately how many cigarettes per day: 1 - Social History Usual Living Arrangement: With Spouse Home Medications - Allergies Allergies/Adverse Reactions: Allergies Allergy/AdvReac Type Severity Reaction Status Date / Time shrimp Allergy Unknown Verified 03/24/17 11:33 No Known Drug Allergies Allergy Verified 03/24/17 11:33 chocolate Allergy Uncoded 05/01/17 14:11 - Home Medications Home Medications: Ambulatory Orders Alprazolam [Xanax] 4 mg PO HS 03/24/17 Aspirin [ASA -] 162 mg PO DAILY 03/24/17 Oxycodone HCl/Acetaminophen [Percocet 10-325 mg Tablet] 1 each PO Q4HWA Alprazolam [Xanax] 2 mg PO TID PRN 04/08/17 Family Disease History - Family Disease History Family Disease History: CA: Mother (Lung) Review of Systems - Review of Systems Constitutional: reports: No Symptoms Eyes: reports: No Symptoms HENT: reports: No Symptoms Neck: reports: No Symptoms Cardiovascular: reports: No Symptoms Respiratory: reports: No Symptoms Gastrointestinal: reports: No Symptoms Genitourinary: reports: No Symptoms Breasts: reports: No Symptoms Reported Musculoskeletal: reports: No Symptoms Integumentary: reports: No Symptoms Neurological: reports: No Symptoms, Headache Endocrine: reports: No Symptoms Hematology/Lymphatic: reports: No Symptoms Psychiatric: reports: No Symptoms Physical Exam Vital Signs: Vital Signs Temperature 99.5 F 05/04/17 06:00 Pulse Rate 75 05/04/17 06:00 Respiratory Rate 14 05/04/17 06:00 Blood Pressure 122/69 05/04/17 06:00 O2 Sat by Pulse Oximetry (%) 96 05/03/17 22:00 Constitutional: Yes: No Distress, Other (appears upset) HENT: Yes: WNL Neck: Yes: WNL Cardiovascular: Yes: WNL Respiratory: Yes: Regular, CTA Bilaterally Gastrointestinal: Yes: Normal Bowel Sounds ...Rectal Exam: Yes: WNL, Deferred Breast(s): Yes: WNL. No: Left, Right, Breast Implants, Dimpling, Discharge from Nipple, Mass, Nipple Inversion, Skin Changes, Other Musculoskeletal: Yes: WNL Extremities: Yes: WNL Labs: CBC, BMP 05/04/17 05:30 05/01/17 05:00 Assessment/Plan 51 y/o female with lung cancer noted on imaging in Aug 2016 now s/p surgery - right lower lobectomy and mediastinal LN dissection -prelim operative report suggests that specimen obtained was negative for malignancy, willhave to follow-up on the final path report -she and her have been advised to arrange for follow-up with medical oncology -'s group in one week from discharge.Patient kept saying she does not wish to follow-up but is agrreable with this plan -advise primary team to please contact us at discharge to arrange for a follow- up appointment.
--- NOTE | 2017-05-04 13:57 | PN ---
Progress Note, Physician - Current Medication List Current Medications: Active Medications Acetaminophen (Tylenol -) 325 mg PO Q4H PRN PRN Reason: FEVER OR PAIN Last Admin: 05/04/17 09:23 Dose: 325 mg Alprazolam (Xanax -) 2 mg PO Q12H PRN PRN Reason: ANXIETY Last Admin: 05/03/17 22:13 Dose: 2 mg Chlorhexidine Gluconate (Hibiclens For Decolonization -) 1 applic TP HS [facility] Last Admin: 05/03/17 21:13 Dose: Not Given Docusate Sodium (Colace -) 100 mg PO BID [facility] Last Admin: 05/04/17 09:21 Dose: 100 mg Ferrous Sulfate (Feosol -) 325 mg PO BID [facility] Last Admin: 05/04/17 09:21 Dose: 325 mg Gabapentin (Neurontin -) 300 mg PO BID [facility] Last Admin: 05/03/17 22:03 Dose: Not Given Hydroxyzine HCl (Atarax -) 25 mg PO BID PRN PRN Reason: ANXIETY Ipratropium [place] (Atrovent 0.02% Nebulizer -) 1 amp NEB QIDR [facility] Last Admin: 05/04/17 11:58 Dose: Not Given Oxycodone HCl (Roxicodone -) 10 mg PO Q4H PRN PRN Reason: PAIN LEVEL 6-10 Last Admin: 05/04/17 09:22 Dose: 10 mg - Objective Vital Signs: Vital Signs Temperature 99.5 F 05/04/17 06:00 Pulse Rate 75 05/04/17 06:00 Respiratory Rate 14 05/04/17 09:00 Blood Pressure 122/69 05/04/17 06:00 O2 Sat by Pulse Oximetry (%) 96 05/03/17 22:00 Labs: CBC, BMP 05/04/17 05:30 05/01/17 05:00 INR, PTT INR 0.92 (0.82-1.09) 05/02/17 05:15 Problem List - Problems (1) Anxiety disorder Code(s): F41.9 - ANXIETY DISORDER, UNSPECIFIED Qualifiers: Anxiety disorder type: generalized anxiety disorder Qualified Code(s ): F41.1 - Generalized anxiety disorder (2) Lung cancer Code(s): C34.90 - MALIGNANT NEOPLASM OF UNSP PART OF UNSP BRONCHUS OR LUNG Qualifiers: Laterality: right (3) Post-op pain Code(s): G89.18 - OTHER ACUTE POSTPROCEDURAL PAIN (4) S/P lobectomy of lung Code(s): Z90.2 - ACQUIRED ABSENCE OF LUNG [PART OF]
--- NOTE | 2017-05-04 14:55 | PN ---
Progress Note (short form) - Note Progress Note: Thoracic F/U: CXR reviewed--stable. Discharge per medical team with f/u in 2 weeks. Dressing may be removed Friday. PRN dressing changes at home if continues to drain.
[2017-05-04] MEDS: GABAPENTIN 300 MG CAPSULE (FP) PO SCH (15:55)
--- NOTE | 2017-05-04 19:19 | DS ---
Physical Examination Vital Signs: Vital Signs Temperature 99.5 F 05/04/17 06:00 Pulse Rate 75 05/04/17 06:00 Respiratory Rate 14 05/04/17 09:00 Blood Pressure 122/69 05/04/17 06:00 O2 Sat by Pulse Oximetry (%) 96 05/03/17 22:00 Findings/Remarks: patient cursing staff all admission and very anxious. I explained to her that her demeanor is unacceptable. patient cleared by CTS/Pulm to go home, chest tube removed, no distress, denies chest pain or sob. Constitutional: Yes: Mild Distress Eyes: Yes: WNL HENT: Yes: WNL Neck: Yes: WNL Cardiovascular: Yes: WNL Respiratory: Yes: WNL Gastrointestinal: Yes: WNL Renal/: Yes: WNL Musculoskeletal: Yes: WNL Extremities: Yes: WNL Edema: No Peripheral Pulses WNL: Yes Integumentary: Yes: WNL Wound/Incision: Yes: Clean/Dry Neurological: Yes: WNL ...Motor Strength: WNL Psychiatric: Yes: Agitated, Other Labs: CBC, BMP 05/04/17 05:30 05/01/17 05:00 Discharge Summary Reason For Visit: LUNG CANCER Current Active Problems Anxiety disorder (Acute) Lung cancer (Acute) Post-op pain (Acute) S/P lobectomy of lung (Acute) Procedures: Principal: lobeectomy lung Hospital Course: admitted lung cancer s/p lobectomy chest tube placed monitored in icu and discharging home, f/u outpatient with CTS and pulm in 3 days. Condition: Stable - Instructions Diet, Activity, Other Instructions: see a primary doctor in [address] jeffrey [address] dotson in 1 week Disposition: HOME - Home Medications Comprehensive Discharge Medication List: Ambulatory Orders Alprazolam [Xanax] 4 mg PO HS 03/24/17 Aspirin [ASA -] 162 mg PO DAILY 03/24/17 Oxycodone HCl/Acetaminophen [Percocet 10-325 mg Tablet] 1 each PO Q4HWA Alprazolam [Xanax] 2 mg PO TID PRN 04/08/17
== END 2017-05-04 20:00 | disposition home or self-care (01) | DRG 120 ==
LOC: JSAMEDAYSX 08:31 → JICU 20:58 → J2W 04-29 23:00
PROVIDERS: ADMIT Family Medicine; ATTEND Family Medicine
PROC: 30233N1 Transfusion of Nonautologous Red Blood Cells into Peripheral Vein, Percutaneous Approach (ICD-10-PCS; 2017-04-28)
PROC: 0BTF4ZZ Resection of Right Lower Lung Lobe, Percutaneous Endoscopic Approach (ICD-10-PCS; principal; 2017-04-29)
PROC: 0BTD4ZZ Resection of Right Middle Lung Lobe, Percutaneous Endoscopic Approach (ICD-10-PCS; 2017-04-29)
PROC: 07B74ZX Excision of Thorax Lymphatic, Percutaneous Endoscopic Approach, Diagnostic (ICD-10-PCS; 2017-04-29)
PROC: 0W9940Z Drainage of Right Pleural Cavity with Drainage Device, Percutaneous Endoscopic Approach (ICD-10-PCS; 2017-04-29)
PROC: 0BPQX0Z Removal of Drainage Device from Pleura, External Approach (ICD-10-PCS; 2017-05-04)
DX: C34.31 Malignant neoplasm of lower lobe, right bronchus or lung (principal); G89.18 Other acute postprocedural pain; M79.7 Fibromyalgia; R71.0 Precipitous drop in hematocrit; F41.0 Panic disorder [episodic paroxysmal anxiety]; M89.8X8 Other specified disorders of bone, other site; M54.5 Low back pain; M41.80 Other forms of scoliosis, site unspecified; M47.899 Other spondylosis, site unspecified; F11.20 Opioid dependence, uncomplicated; Z90.2 Acquired absence of lung [part of]; Z91.14 Patient's other noncompliance with medication regimen
CPT/HCPCS: 36415; 36430; 36600; 71010-TC; 80048; 80053; 82553; 82803; 84484; 84703; 85025; 85027; 85610; 85730; 86850; 86900; 86901; 86922; 88305-TC; 88307-TC; 88309-TC; 88331-TC; 93005; 93010; 94640; 94760; 97116-GP; 97161-GP; J1644; P9038; P9058